=== PATIENT | male | born 1965 | race American Indian/Alaskan Native ===

== ENCOUNTER 2016-11-21 14:15 | Emergency (ER) | payer MEDICAID ==
[~2016-11-21] VITALS: Ht 182.9 cm; Wt 75.2 kg
[2016-11-21 16:22] VITALS: BP 115/74
== END 2016-11-21 16:38 | disposition home or self-care (01) ==
LOC: ED 16:00
DX: L03.116 Cellulitis of left lower limb (principal); B35.6 Tinea cruris; G89.29 Other chronic pain; M54.9 Dorsalgia, unspecified; K21.9 Gastro-esophageal reflux disease without esophagitis; I10 Essential (primary) hypertension; F17.200 Nicotine dependence, unspecified, uncomplicated

== ENCOUNTER 2017-08-12 21:48 | Emergency (ER) | payer MEDICAID ==
[~2017-08-12] VITALS: Ht 185.4 cm; Wt 77.4 kg
[~2017-08-12 21:48] MED LIST: OMEP-110 PO
[2017-08-12 21:54] VITALS: BP 140/95
[2017-08-12] MEDS ORDERED: FAMOTIDINE 20 MG TABLET PO ONE (23:00)
[2017-08-12] MEDS ORDERED: FAMOTIDINE 20 MG TABLET ONE (23:09)
== END 2017-08-12 23:26 | disposition home or self-care (01) ==
LOC: ED 22:48
DX: J02.9 Acute pharyngitis, unspecified (principal)
CPT/HCPCS: 99283; Q0177

== ENCOUNTER 2017-11-07 17:05 | Inpatient (IN) | payer MEDICAID ==
[~2017-11-07] VITALS: Ht 185.4 cm; Wt 74.4 kg
[2017-11-07] MEDS ORDERED: MAALOX/HYOSCYAMINE/LIDOCAINE 45 ML BTL PO ONE (18:00)
[2017-11-07] MEDS ORDERED: FAMOTIDINE 20 MG/2 ML IVP ONE (18:00)
[2017-11-07] MEDS ORDERED: SODIUM CHLORIDE 0.9% 1,000ML IVBOLUS ONE (18:00)
[2017-11-07 18:11] LABS: BASOPHILS # (AUTO) 0.03 x10^3/uL (0-0.1); BASOPHILS % (AUTO) 1 % (0-1); EOSINOPHILS # (AUTO) 0.02 x10^3/uL (0-0.4); EOSINOPHILS % (AUTO) 0 % (1-7); LYMPHOCYTES # (AUTO) 0.87 x10^3/uL (1-3.4); LYMPHOCYTES % (AUTO) 16 % (22-44); MD NO; MEAN CORPUSCULAR HEMOGLOBIN 23.1 pg (27.5-34.5); MEAN CORPUSCULAR HGB CONC 32.1 g/dL (33.2-36.2); MEAN CORPUSCULAR VOLUME 71.8 fL (81-97); MEAN PLATELET VOLUME 9.3 fL (7.4-10.4); MONOCYTES # (AUTO) 0.81 x10^3/uL (0.2-0.8); MONOCYTES % (AUTO) 15 % (2-9); NEUTROPHILS % (AUTO) 68 % (42-75); PLATELET COUNT 297 x10^3/uL (130-400); RED CELL DISTRIBUTION WIDTH 19.9 % (9.4-14.8)
[2017-11-07 18:12] LABS: INTERNATIONAL NORMALIZED RATIO 1.05 (0.93-1.1); PROTHROMBIN TIME 10.9 Seconds (9.6-11.5)
[2017-11-07] MEDS ORDERED: FAMOTIDINE 20 MG/2 ML ONE (18:22)
[2017-11-07] MEDS ORDERED: MAALOX/HYOSCYAMINE/LIDOCAINE 45 ML BTL ONE (18:22)
[2017-11-07 18:27] LABS: ALANINE AMINOTRANSFERASE 124 U/L (12-78); ALBUMIN 3.5 g/dL (3.4-5.0); ANION GAP 8 mmol/L (5-15); CALCIUM 8.8 mg/dL (8.5-10.1); CHLORIDE 104 mmol/L (98-107)
[2017-11-07 18:30] LABS: ALKALINE PHOSPHATASE 179 U/L (45-117); BILIRUBIN,TOTAL 0.3 mg/dL (0.2-1.0); CREATININE 0.81 mg/dL (0.7-1.3); TOTAL PROTEIN 8.3 g/dL (6.4-8.2)
[2017-11-07] MEDS ORDERED: SODIUM CHLORIDE FLUSH 10ML SYR IVF ONE (19:00)
[2017-11-07] MEDS ORDERED: LORazepam 2 MG/ML, 1ML IVPush ONE (20:00)
[2017-11-07] MEDS ORDERED: BISACODYL 10 MG SUPP PR PRN (20:00)
[2017-11-07 20:44] VITALS: BP 146/94
[2017-11-07] MEDS: SODIUM CHLORIDE 0.9% 1,000 ML IV SCH (20:50)
[2017-11-08 02:21] VITALS: BP 128/91
[2017-11-08] MEDS: SODIUM CHLORIDE 0.9% 1,000 ML IV SCH ×3 (04:48→20:50)
[2017-11-08 05:25] LABS: ANION GAP 5 mmol/L (5-15); CALCIUM 8.5 mg/dL (8.5-10.1); CHLORIDE 107 mmol/L (98-107); CREATININE 0.79 mg/dL (0.7-1.3)
[2017-11-08 05:41] LABS: BASOPHILS # (AUTO) 0.02 x10^3/uL (0-0.1); BASOPHILS % (AUTO) 1 % (0-1); EOSINOPHILS # (AUTO) 0.01 x10^3/uL (0-0.4); EOSINOPHILS % (AUTO) 0 % (1-7); LYMPHOCYTES # (AUTO) 1.01 x10^3/uL (1-3.4); LYMPHOCYTES % (AUTO) 28 % (22-44); MD NO; MEAN CORPUSCULAR HEMOGLOBIN 22.9 pg (27.5-34.5); MEAN CORPUSCULAR HGB CONC 32.5 g/dL (33.2-36.2); MEAN CORPUSCULAR VOLUME 70.6 fL (81-97); MEAN PLATELET VOLUME 9.3 fL (7.4-10.4); MONOCYTES # (AUTO) 0.68 x10^3/uL (0.2-0.8); MONOCYTES % (AUTO) 19 % (2-9); NEUTROPHILS # (AUTO) 1.95 x10^3/uL (1.8-6.8); NEUTROPHILS % (AUTO) 53 % (42-75); PLATELET COUNT 239 x10^3/uL (130-400); RED BLOOD COUNT 4.56 x10^6/uL (4.38-5.82)
[2017-11-08 08:31] VITALS: BP 128/86
[2017-11-08] MEDS ORDERED: PANTOPRAZOLE 40 MG IV IVPush SCH (09:00)
[2017-11-08] MEDS ORDERED: MIDAZOLAM 1 MG/ML, 5ML ONE (12:48)
[2017-11-08] MEDS ORDERED: FENTANYL PF 100 MCG/2ML ONE (12:48)
[2017-11-08 14:00] VITALS: BP 123/86
[2017-11-08] MEDS: OMEPRAZOLE 20 MG CAPSULE.DR PO SCH (17:34)
[2017-11-08 18:55] VITALS: BP 152/97
[2017-11-08] MEDS: BUDESONIDE PO SCH (20:51)
[2017-11-09 01:46] VITALS: BP 125/84
[2017-11-09 04:53] LABS: BASOPHILS # (AUTO) 0.02 x10^3/uL (0-0.1); BASOPHILS % (AUTO) 0 % (0-1); EOSINOPHILS # (AUTO) 0.03 x10^3/uL (0-0.4); EOSINOPHILS % (AUTO) 1 % (1-7); LYMPHOCYTES # (AUTO) 1.53 x10^3/uL (1-3.4); LYMPHOCYTES % (AUTO) 41 % (22-44); MD NO; MEAN CORPUSCULAR HEMOGLOBIN 22.8 pg (27.5-34.5); MEAN CORPUSCULAR HGB CONC 32.2 g/dL (33.2-36.2); MEAN CORPUSCULAR VOLUME 70.9 fL (81-97); MEAN PLATELET VOLUME 9.3 fL (7.4-10.4); MONOCYTES # (AUTO) 0.57 x10^3/uL (0.2-0.8); MONOCYTES % (AUTO) 15 % (2-9); NEUTROPHILS # (AUTO) 1.57 x10^3/uL (1.8-6.8); NEUTROPHILS % (AUTO) 42 % (42-75); PLATELET COUNT 227 x10^3/uL (130-400); RED CELL DISTRIBUTION WIDTH 20.2 % (9.4-14.8)
[2017-11-09] MEDS: SODIUM CHLORIDE 0.9% 1,000 ML IV SCH ×2 (04:54→12:54)
[2017-11-09] MEDS: BUDESONIDE PO SCH (09:00)
[2017-11-09 09:44] VITALS: BP 160/91
[2017-11-09] MEDS: OMEPRAZOLE 20 MG CAPSULE.DR PO SCH ×2 (09:47→16:05)
[2017-11-09 13:38] VITALS: BP 132/93
[2017-11-09] MEDS ORDERED: FERR-51 PO (15:16)
[2017-11-09] MEDS ORDERED: [UNRECOGNIZED DRUG - OTHER] PO ×3 (15:16→15:45)
[2017-11-09] MEDS ORDERED: OMEP-110 PO (15:16)
[2017-11-09] MEDS ORDERED: FERROUS SULFATE 325 MG TABLET PO SCH (17:00)
== END 2017-11-09 16:10 | disposition home or self-care (01) | DRG 370 ==
LOC: ED 18:21 → EDIP 19:29 → 4NOR 20:21
PROVIDERS: ADMIT Family Medicine; ATTEND Family Medicine
PROC: 0DB28ZX Excision of Middle Esophagus, Via Natural or Artificial Opening Endoscopic, Diagnostic (ICD-10-PCS; principal; 2017-11-07)
PROC: 0DB18ZX Excision of Upper Esophagus, Via Natural or Artificial Opening Endoscopic, Diagnostic (ICD-10-PCS; 2017-11-07)
DX: K22.6 Gastro-esophageal laceration-hemorrhage syndrome (principal); B19.20 Unspecified viral hepatitis C without hepatic coma; D50.9 Iron deficiency anemia, unspecified; F17.210 Nicotine dependence, cigarettes, uncomplicated; I10 Essential (primary) hypertension; K20.0 Eosinophilic esophagitis; K21.9 Gastro-esophageal reflux disease without esophagitis; Z80.0 Family history of malignant neoplasm of digestive organs
CPT/HCPCS: 36415; 80048; 80053; 80074; 82728; 82784; 83516; 83540; 83550; 83690; 85025; 85610; 85730; 86677; 87521; 88305; 96374; 99152; 99153; J2250; J3010; C9113; J7030; S0028

== ENCOUNTER 2018-03-08 12:42 | Inpatient (IN) | payer MEDICAID ==
[~2018-03-08] VITALS: Ht 182.9 cm; Wt 77.3 kg
[~2018-03-08 12:42] MED LIST changes: +FERR-51 PO; +[UNRECOGNIZED DRUG - OTHER] PO
[2018-03-08] MEDS ORDERED: FAMOTIDINE 20 MG/2 ML ONE (13:54)
[2018-03-08] MEDS ORDERED: MAALOX/HYOSCYAMINE/LIDOCAINE 45 ML BTL ONE (13:54)
[2018-03-08] MEDS ORDERED: ONDANSETRON ODT 4 MG ONE (13:54)
[2018-03-08] MEDS ORDERED: ONDANSETRON ODT 4 MG PO ONE (14:00)
[2018-03-08] MEDS ORDERED: FAMOTIDINE 20 MG/2 ML IVP ONE (14:00)
[2018-03-08] MEDS ORDERED: MAALOX/HYOSCYAMINE/LIDOCAINE 45 ML BTL PO ONE (14:00)
[2018-03-08] MEDS ORDERED: SODIUM CHLORIDE 0.9% 1,000ML IVBOLUS ONE (14:00)
[2018-03-08 14:26] LABS: CHLORIDE 103 mmol/L (98-107)
[2018-03-08 14:33] LABS: ALANINE AMINOTRANSFERASE 161 U/L (12-78); ALBUMIN 3.1 g/dL (3.4-5.0); ALKALINE PHOSPHATASE 272 U/L (45-117); ANION GAP 6 mmol/L (5-15); BILIRUBIN,TOTAL 0.7 mg/dL (0.2-1.0); CALCIUM 9.5 mg/dL (8.5-10.1); CREATININE 1.02 mg/dL (0.7-1.3); TOTAL PROTEIN 8.4 g/dL (6.4-8.2)
[2018-03-08 14:42] LABS: MEAN CORPUSCULAR VOLUME 68.8 fL (81-97); MEAN PLATELET VOLUME 11.2 fL (7.4-10.4); PLATELET COUNT 260 x10^3/uL (130-400); RED BLOOD COUNT 4.99 x10^6/uL (4.38-5.82)
[2018-03-08] MEDS ORDERED: SODIUM CHLORIDE FLUSH 10ML SYR IVF ONE (15:00)
[2018-03-08] MEDS ORDERED: PROMETHAZINE 25 MG/ML, 1ML IM ONE (15:00)
[2018-03-08] MEDS ORDERED: PROMETHAZINE 25 MG/ML, 1ML ONE (15:11)
[2018-03-08 15:42] LABS: MD YES
[2018-03-08 15:46] LABS: <PLATELET ESTIMATE> ADEQUATE; <RBC MORPHOLOGY> NORMAL; BAND#(MANUAL) 0.21 x10^3/uL; BANDS%(MANUAL) 3 % (0-7); EOS#(MANUAL) 0.14 x10^3/uL (0.0-0.4); EOS% (MANUAL) 2 % (1-7); LARGE PLATELETS 1+; LYMPH#(MANUAL) 1.56 x10^3/uL (1-3.4); LYMPHS% (MANUAL) 22 % (22-44); MONOS#(MANUAL) 0.28 x10^3/uL (0.3-2.7); MONOS% (MANUAL) 4 % (2-9); SEGS% (MANUAL) 69 % (42-75)
[2018-03-08] MEDS ORDERED: METRONIDAZOLE PMX 500MG/100ML 100 ML IV SCH (16:30)
[2018-03-08] MEDS ORDERED: CEFTRIAXONE 1,000 MG in SODIUM CHLORIDE 0.9% 50 ML IV SCH (16:30)
[2018-03-08] MEDS ORDERED: OXYcodone IR 5MG TABLET PO PRN (16:30)
[2018-03-08] MEDS ORDERED: ONDANSETRON 2MG/ML, 2ML IVPush PRN (16:30)
[2018-03-08] MEDS ORDERED: morphine SULFATE 10 MG/ML, 1ML IVPush PRN (16:30)
[2018-03-08] MEDS ORDERED: NITROGLYCERIN 0.4 MG BOTTLE (25 TABS) SL PRN (16:30)
[2018-03-08] MEDS ORDERED: ENALAPRILAT 1.25 MG/ML, 2ML IVPush PRN (16:30)
[2018-03-08 17:06] LABS: % IRON SATURATION 8 % (20-55); INTERNATIONAL NORMALIZED RATIO 1.09 (0.93-1.1); IRON LEVEL 28 mcg/dL (65-175); PROTHROMBIN TIME 11.2 Seconds (9.6-11.5); TOTAL IRON BINDING CAPACITY 363 mcg/dL (250-450)
[2018-03-08 17:09] LABS: TROPONIN I < 0.015 ng/mL (0.000-0.045)
[2018-03-08 17:45] LABS: BASOPHILS # (AUTO) 0.04 x10^3/uL (0-0.1); BASOPHILS % (AUTO) 1 % (0-1); EOSINOPHILS # (AUTO) 0.03 x10^3/uL (0-0.4); EOSINOPHILS % (AUTO) 1 % (1-7); LYMPHOCYTES # (AUTO) 1.45 x10^3/uL (1-3.4); LYMPHOCYTES % (AUTO) 21 % (22-44); MD SCAN; MEAN CORPUSCULAR HEMOGLOBIN 22.1 pg (27.5-34.5); MEAN CORPUSCULAR HGB CONC 31.9 g/dL (33.2-36.2); MEAN CORPUSCULAR VOLUME 69.1 fL (81-97); MEAN PLATELET VOLUME 11.2 fL (7.4-10.4); MONOCYTES # (AUTO) 0.89 x10^3/uL (0.2-0.8); MONOCYTES % (AUTO) 13 % (2-9); NEUTROPHILS # (AUTO) 4.41 x10^3/uL (1.8-6.8); NEUTROPHILS % (AUTO) 65 % (42-75); PLATELET COUNT 245 x10^3/uL (130-400); RED BLOOD COUNT 4.93 x10^6/uL (4.38-5.82); RED CELL DISTRIBUTION WIDTH 23.2 % (9.4-14.8)
[2018-03-08 18:32] VITALS: BP 131/96
[2018-03-08] MEDS: SODIUM CHLORIDE 0.9% 1,000 ML IV SCH (18:34)
[2018-03-08] MEDS ORDERED: FENTANYL PF 100 MCG/2ML ONE (19:29)
[2018-03-08] MEDS ORDERED: MIDAZOLAM 1 MG/ML, 2ML ONE (19:29)
[2018-03-08] MEDS ORDERED: [UNRECOGNIZED DRUG - OTHER] PO SCH (21:00)
[2018-03-08 22:16] LABS: MEAN CORPUSCULAR HEMOGLOBIN 22.2 pg (27.5-34.5); MEAN CORPUSCULAR HGB CONC 32.3 g/dL (33.2-36.2); MEAN CORPUSCULAR VOLUME 68.7 fL (81-97); MEAN PLATELET VOLUME 10.5 fL (7.4-10.4); PLATELET COUNT 231 x10^3/uL (130-400); RED BLOOD COUNT 4.94 x10^6/uL (4.38-5.82)
[2018-03-08] MEDS: PANTOPRAZOLE 40 MG IV IVPush SCH (22:24)
[2018-03-08] MEDS: ATORVASTATIN 40 MG TABLET PO SCH (22:24)
[2018-03-08] MEDS: NICOTINE 14MG/24 HR PATCH.TD24 TD SCH (22:44)
[2018-03-08 22:52] LABS: MD YES
[2018-03-08 22:55] LABS: EOS#(MANUAL) 0.06 x10^3/uL (0.0-0.4); EOS% (MANUAL) 1 % (1-7); LYMPH#(MANUAL) 1.79 x10^3/uL (1-3.4); LYMPHS% (MANUAL) 28 % (22-44); MONOS#(MANUAL) 0.64 x10^3/uL (0.3-2.7); MONOS% (MANUAL) 10 % (2-9); SEGS% (MANUAL) 61 % (42-75)
[2018-03-08 22:58] LABS: <PLATELET ESTIMATE> ADEQUATE; <PLT MORPHOLOGY> NORMAL PLT MORPH; HYPOCHROMIA 2+; MICROCYTOSIS 2+
[2018-03-08 23:01] VITALS: BP 116/78
[2018-03-09] MEDS: PIPERACILLIN/TAZO/PMX 4.5GM 100 ML IV SCH ×5 (00:45→23:48)
[2018-03-09 01:22] LABS: TROPONIN I < 0.015 ng/mL (0.000-0.045)
[2018-03-09 01:29] VITALS: BP 127/85
[2018-03-09] MEDS ORDERED: ASPIRIN 325 MG TABLET EC PO SCH (06:00)
[2018-03-09] MEDS ORDERED: ASPIRIN 81 MG TABLET EC PO SCH (06:00)
[2018-03-09 06:13] LABS: ALANINE AMINOTRANSFERASE 137 U/L (12-78); ALBUMIN 2.8 g/dL (3.4-5.0); ANION GAP 5 mmol/L (5-15); CALCIUM 8.4 mg/dL (8.5-10.1); CHLORIDE 107 mmol/L (98-107); CREATININE 0.86 mg/dL (0.7-1.3)
[2018-03-09 06:16] LABS: ALKALINE PHOSPHATASE 237 U/L (45-117); BILIRUBIN,TOTAL 0.5 mg/dL (0.2-1.0); TOTAL PROTEIN 7.7 g/dL (6.4-8.2)
[2018-03-09 08:00] VITALS: BP 122/74
[2018-03-09] MEDS: PANTOPRAZOLE 40 MG IV IVPush SCH ×2 (08:23→21:22)
[2018-03-09] MEDS: SODIUM CHLORIDE 0.9% 1,000 ML IV SCH (08:37)
[2018-03-09] MEDS ORDERED: PROPOFOL 10 MG/ML, 20ML ONE (09:21)
[2018-03-09 09:33] LABS: TROPONIN I < 0.015 ng/mL (0.000-0.045)
[2018-03-09] MEDS ORDERED: ONDANSETRON ODT 8 MG PO PRN (10:00)
[2018-03-09] MEDS ORDERED: EPHEDRINE 50 MG/ML, 1ML IVPush PRN (10:00)
[2018-03-09] MEDS ORDERED: PROMETHAZINE 25 MG/ML, 1ML IV PRN (10:00)
[2018-03-09] MEDS ORDERED: HYDROmorphone 1 MG/ML, 1ML IV PRN (10:00)
[2018-03-09] MEDS ORDERED: MORPHINE SULFATE 4 MG/ML, 1ML IVPush PRN (10:00)
[2018-03-09] MEDS ORDERED: MEPERIDINE/PF 25MG/0.5ML IVPush PRN (10:00)
[2018-03-09] MEDS ORDERED: ALBUTEROL SULFATE 2.5 MG/3 ML NPPB PRN (10:00)
[2018-03-09] MEDS ORDERED: PROMETHAZINE 12.5 MG SUPP PR PRN (10:00)
[2018-03-09] MEDS ORDERED: OXYcodone 5 MG/5 ML ORAL.SOL UDC PO PRN (10:00)
[2018-03-09] MEDS ORDERED: hydrALAzine 20 MG/ML, 1ML IV PRN (10:00)
[2018-03-09] MEDS ORDERED: FENTANYL PF 100 MCG/2ML IV PRN (10:00)
[2018-03-09] MEDS ORDERED: LABETALOL 5MG/ML, 20ML IV PRN (10:00)
[2018-03-09] MEDS ORDERED: MIDAZOLAM 1 MG/ML, 2ML IV PRN (10:00)
[2018-03-09] MEDS ORDERED: LORazepam 2 MG/ML, 1ML IVPush PRN (10:00)
[2018-03-09] MEDS ORDERED: ONDANSETRON 2MG/ML, 2ML IV PRN (10:00)
[2018-03-09] MEDS ORDERED: GADOBUTROL 15 MMOL/15 ML VIAL ONE (11:46)
[2018-03-09 12:47] VITALS: BP 145/107
[2018-03-09] MEDS ORDERED: IBUPROFEN 200 MG TABLET ONE (18:19)
[2018-03-09] MEDS ORDERED: IBUPROFEN 200 MG TABLET PO PRN (18:30)
[2018-03-09 19:52] VITALS: BP 129/87
[2018-03-09] MEDS: NICOTINE 14MG/24 HR PATCH.TD24 TD SCH (21:00)
[2018-03-09] MEDS: ATORVASTATIN 40 MG TABLET PO SCH (21:22)
[2018-03-10 02:00] VITALS: BP 141/92
[2018-03-10] MEDS: PIPERACILLIN/TAZO/PMX 4.5GM 100 ML IV SCH (06:00)
[2018-03-10] MEDS ORDERED: LINEZOLID PMX 600MG/300ML 300 ML IV SCH (08:00)
[2018-03-10] MEDS: PANTOPRAZOLE 40 MG IV IVPush SCH (08:38)
[2018-03-10 09:07] VITALS: BP 132/91
[2018-03-10] MEDS: AMPICILLIN/SULBACTAM 3 GM in SODIUM CHLORIDE 0.9% 100 ML IV SCH ×3 (11:39→23:27)
[2018-03-10 12:44] VITALS: BP 127/91
[2018-03-10 20:19] VITALS: BP 150/90
[2018-03-10] MEDS: DOXYCYCLINE 100MG TABLET PO SCH (20:56)
[2018-03-10] MEDS: PANTOPROZOLE 40MG TABLET PO SCH (20:56)
[2018-03-10] MEDS: ATORVASTATIN 40 MG TABLET PO SCH (20:56)
[2018-03-10] MEDS: NICOTINE 14MG/24 HR PATCH.TD24 TD SCH (20:56)
[2018-03-11 00:23] VITALS: BP 142/94
[2018-03-11] MEDS: AMPICILLIN/SULBACTAM 3 GM in SODIUM CHLORIDE 0.9% 100 ML IV SCH ×4 (05:14→23:12)
[2018-03-11 06:46] VITALS: BP 128/90
[2018-03-11 06:51] LABS: MEAN CORPUSCULAR HEMOGLOBIN 22.1 pg (27.5-34.5); MEAN CORPUSCULAR HGB CONC 32.3 g/dL (33.2-36.2); MEAN CORPUSCULAR VOLUME 68.5 fL (81-97); MEAN PLATELET VOLUME 10.7 fL (7.4-10.4); PLATELET COUNT 225 x10^3/uL (130-400); RED BLOOD COUNT 4.84 x10^6/uL (4.38-5.82); RED CELL DISTRIBUTION WIDTH 23.3 % (9.4-14.8)
[2018-03-11 07:02] LABS: ALBUMIN 2.7 g/dL (3.4-5.0); ANION GAP 6 mmol/L (5-15); CALCIUM 8.3 mg/dL (8.5-10.1); CHLORIDE 107 mmol/L (98-107)
[2018-03-11 07:05] LABS: ALANINE AMINOTRANSFERASE 135 U/L (12-78); ALKALINE PHOSPHATASE 285 U/L (45-117); BILIRUBIN,TOTAL 0.4 mg/dL (0.2-1.0); TOTAL PROTEIN 7.7 g/dL (6.4-8.2)
[2018-03-11 07:28] LABS: MD YES
[2018-03-11 07:29] LABS: <PLATELET ESTIMATE> ADEQUATE; BAND#(MANUAL) 0.04 x10^3/uL; BANDS%(MANUAL) 1 % (0-7); EOS#(MANUAL) 0.08 x10^3/uL (0.0-0.4); EOS% (MANUAL) 2 % (1-7); LYMPH#(MANUAL) 1.44 x10^3/uL (1-3.4); LYMPHS% (MANUAL) 38 % (22-44); MONOS#(MANUAL) 0.38 x10^3/uL (0.3-2.7); MONOS% (MANUAL) 10 % (2-9); SEG#(MANUAL) 1.86 x10^3/uL (1.8-6.8); SEGS% (MANUAL) 49 % (42-75)
[2018-03-11 07:30] LABS: LARGE PLATELETS 1+
[2018-03-11 07:31] LABS: HYPOCHROMIA 1+; MICROCYTOSIS 2+
[2018-03-11] MEDS: PANTOPROZOLE 40MG TABLET PO SCH ×2 (08:00→20:43)
[2018-03-11] MEDS: DOXYCYCLINE 100MG TABLET PO SCH ×2 (08:00→20:42)
[2018-03-11 12:23] VITALS: BP 156/96
[2018-03-11] MEDS ORDERED: MOVIPREP POWDER 1 PREP KIT PO ONE (17:00)
[2018-03-11 19:14] VITALS: BP 147/99
[2018-03-11] MEDS: NICOTINE 14MG/24 HR PATCH.TD24 TD SCH (20:42)
[2018-03-11] MEDS: ATORVASTATIN 40 MG TABLET PO SCH (20:42)
[2018-03-12 01:16] VITALS: BP 133/91
[2018-03-12] MEDS: AMPICILLIN/SULBACTAM 3 GM in SODIUM CHLORIDE 0.9% 100 ML IV SCH ×2 (05:06→12:47)
[2018-03-12 05:40] LABS: MEAN CORPUSCULAR HEMOGLOBIN 22.4 pg (27.5-34.5); MEAN CORPUSCULAR HGB CONC 32.5 g/dL (33.2-36.2); MEAN PLATELET VOLUME 10.7 fL (7.4-10.4); PLATELET COUNT 250 x10^3/uL (130-400); RED BLOOD COUNT 4.95 x10^6/uL (4.38-5.82); RED CELL DISTRIBUTION WIDTH 23.4 % (9.4-14.8)
[2018-03-12 05:52] LABS: CHLORIDE 107 mmol/L (98-107)
[2018-03-12 06:08] LABS: ALANINE AMINOTRANSFERASE 146 U/L (12-78); ALBUMIN 2.9 g/dL (3.4-5.0); ALKALINE PHOSPHATASE 269 U/L (45-117); ANION GAP 9 mmol/L (5-15); BILIRUBIN,TOTAL 0.6 mg/dL (0.2-1.0); CALCIUM 8.5 mg/dL (8.5-10.1); CREATININE 0.75 mg/dL (0.7-1.3)
[2018-03-12 06:17] LABS: BASOPHILS # (AUTO) 0.03 x10^3/uL (0-0.1); BASOPHILS % (AUTO) 1 % (0-1); EOSINOPHILS # (AUTO) 0.15 x10^3/uL (0-0.4); EOSINOPHILS % (AUTO) 3 % (1-7); LYMPHOCYTES % (AUTO) 29 % (22-44); MD SCAN; MONOCYTES % (AUTO) 12 % (2-9); NEUTROPHILS # (AUTO) 2.74 x10^3/uL (1.8-6.8); NEUTROPHILS % (AUTO) 56 % (42-75)
[2018-03-12 06:40] VITALS: BP 148/98
[2018-03-12] MEDS: PANTOPROZOLE 40MG TABLET PO SCH (08:14)
[2018-03-12] MEDS: DOXYCYCLINE 100MG TABLET PO SCH (08:14)
[2018-03-12] MEDS ORDERED: PROPOFOL 10 MG/ML, 20ML ONE (10:44)
[2018-03-12] MEDS ORDERED: FENTANYL PF 100 MCG/2ML IV PRN (11:30)
[2018-03-12] MEDS ORDERED: EPHEDRINE 50 MG/ML, 1ML IVPush PRN (11:30)
[2018-03-12] MEDS ORDERED: MIDAZOLAM 1 MG/ML, 2ML IV PRN (11:30)
[2018-03-12] MEDS ORDERED: ALBUTEROL SULFATE 2.5 MG/3 ML NPPB PRN (11:30)
[2018-03-12] MEDS ORDERED: MORPHINE SULFATE 4 MG/ML, 1ML IVPush PRN (11:30)
[2018-03-12] MEDS ORDERED: LABETALOL 5MG/ML, 20ML IV PRN (11:30)
[2018-03-12] MEDS ORDERED: HYDROmorphone 1 MG/ML, 1ML IV PRN (11:30)
[2018-03-12] MEDS ORDERED: MEPERIDINE/PF 25MG/0.5ML IVPush PRN (11:30)
[2018-03-12] MEDS ORDERED: hydrALAzine 20 MG/ML, 1ML IV PRN (11:30)
[2018-03-12] MEDS ORDERED: OXYcodone 5 MG/5 ML ORAL.SOL UDC PO PRN (11:30)
[2018-03-12] MEDS ORDERED: ONDANSETRON ODT 8 MG PO PRN (11:30)
[2018-03-12] MEDS ORDERED: PROMETHAZINE 12.5 MG SUPP PR PRN (11:30)
[2018-03-12] MEDS ORDERED: LORazepam 2 MG/ML, 1ML IVPush PRN (11:30)
[2018-03-12] MEDS ORDERED: PROMETHAZINE 25 MG/ML, 1ML IV PRN (11:30)
[2018-03-12] MEDS ORDERED: ONDANSETRON 2MG/ML, 2ML IV PRN (11:30)
[2018-03-12 12:40] VITALS: BP 140/95
[2018-03-12] MEDS ORDERED: OMNIPAQUE 350 MG/ML, 100ML BOTTLE ONE (14:39)
[2018-03-12] MEDS ORDERED: PANT40TA5 PO (16:28)
[2018-03-12] MEDS ORDERED: AMOX1TAB64 PO (16:28)
== END 2018-03-12 17:10 | disposition home or self-care (01) | DRG 445 ==
LOC: ED 15:04 → EDIP 15:09 → 4WST 18:08
PROVIDERS: ADMIT Internal Medicine; ATTEND Internal Medicine
PROC: 0DB28ZX Excision of Middle Esophagus, Via Natural or Artificial Opening Endoscopic, Diagnostic (ICD-10-PCS; principal; 2018-03-09 09:30)
PROC: 0DBK8ZZ Excision of Ascending Colon, Via Natural or Artificial Opening Endoscopic (ICD-10-PCS; 2018-03-12)
PROC: 0DBL8ZZ Excision of Transverse Colon, Via Natural or Artificial Opening Endoscopic (ICD-10-PCS; 2018-03-12)
DX: K80.00 Calculus of gallbladder with acute cholecystitis without obstruction (principal); D62 Acute posthemorrhagic anemia; L03.115 Cellulitis of right lower limb; K21.0 Gastro-esophageal reflux disease with esophagitis; K63.5 Polyp of colon; T63.301A Toxic effect of unspecified spider venom, accidental (unintentional), initial encounter; R16.0 Hepatomegaly, not elsewhere classified; B18.2 Chronic viral hepatitis C; F17.200 Nicotine dependence, unspecified, uncomplicated; E86.0 Dehydration; I10 Essential (primary) hypertension; G89.29 Other chronic pain; M54.9 Dorsalgia, unspecified; K57.30 Diverticulosis of large intestine without perforation or abscess without bleeding; Z66 Do not resuscitate; Z71.6 Tobacco abuse counseling; Z80.0 Family history of malignant neoplasm of digestive organs; Z80.3 Family history of malignant neoplasm of breast; Z80.8 Family history of malignant neoplasm of other organs or systems; Y92.89 Other specified places as the place of occurrence of the external cause
CPT/HCPCS: 36415; 99285; S0028; 71046; 74178; 74183; 76700; 80053; 82105; 82728; 83540; 83550; 83690; 83735; 84100; 84484; 85025; 85610; 85730; 87040; 87070; 87147; 87205; 87522; 87902; 88305; 93005; 96361; 96372; 96374; A9585; G0378; J0295; J0696; J2250; J2543; J2550; J2704; J3010; Q0162; Q9967; C9113; J7030

== ENCOUNTER 2018-03-21 10:01 | Observation (INO) | payer MEDICAID ==
[~2018-03-21] VITALS: Ht 182.9 cm; Wt 76.0 kg
[~2018-03-21 10:01] MED LIST changes: +AMOX1TAB64 PO; +PANT40TA5 PO
[2018-03-21 11:49] LABS: MICROSCOPIC INDICATED
[2018-03-21] MEDS ORDERED: ONDANSETRON ODT 4 MG PO ONE ×2 (12:00→14:00)
[2018-03-21] MEDS ORDERED: MORPHINE SULFATE 4 MG/ML, 1ML IVPush PRN (12:00)
[2018-03-21] MEDS ORDERED: SODIUM CHLORIDE FLUSH 10ML SYR IVF ONE ×2 (12:00→14:00)
[2018-03-21] MEDS ORDERED: ONDANSETRON ODT 4 MG ONE ×2 (12:06→13:38)
[2018-03-21] MEDS ORDERED: MORPHINE SULFATE 4 MG/ML, 1ML ONE (12:06)
[2018-03-21 12:17] LABS: MEAN CORPUSCULAR HEMOGLOBIN 21.9 pg (27.5-34.5); MEAN CORPUSCULAR HGB CONC 32.6 g/dL (33.2-36.2); MEAN CORPUSCULAR VOLUME 67.1 fL (81-97); MEAN PLATELET VOLUME 10.6 fL (7.4-10.4); PLATELET COUNT 269 x10^3/uL (130-400); RED BLOOD COUNT 4.69 x10^6/uL (4.38-5.82); RED CELL DISTRIBUTION WIDTH 24.2 % (9.4-14.8)
[2018-03-21 12:23] LABS: ALANINE AMINOTRANSFERASE 152 U/L (12-78); ANION GAP 11 mmol/L (5-15); CALCIUM 8.7 mg/dL (8.5-10.1); CHLORIDE 105 mmol/L (98-107); CREATININE 0.76 mg/dL (0.7-1.3)
[2018-03-21 12:25] LABS: ALKALINE PHOSPHATASE 405 U/L (45-117); BILIRUBIN,TOTAL 0.7 mg/dL (0.2-1.0); TOTAL PROTEIN 8.1 g/dL (6.4-8.2)
[2018-03-21 12:32] LABS: BASOPHILS # (AUTO) 0.03 x10^3/uL (0-0.1); BASOPHILS % (AUTO) 1 % (0-1); EOSINOPHILS # (AUTO) 0.06 x10^3/uL (0-0.4); EOSINOPHILS % (AUTO) 1 % (1-7); LYMPHOCYTES # (AUTO) 1.09 x10^3/uL (1-3.4); LYMPHOCYTES % (AUTO) 22 % (22-44); MD MORPH REVIEW ONLY; MONOCYTES # (AUTO) 0.43 x10^3/uL (0.2-0.8); MONOCYTES % (AUTO) 9 % (2-9); NEUTROPHILS # (AUTO) 3.35 x10^3/uL (1.8-6.8); NEUTROPHILS % (AUTO) 68 % (42-75)
[2018-03-21 12:33] LABS: <PLATELET ESTIMATE> ADEQUATE; ANISOCYTOSIS 1+; HYPOCHROMIA 1+; LARGE PLATELETS 1+; MICROCYTOSIS 2+; POLYCHROMASIA 1+
[2018-03-21] MEDS ORDERED: PROMETHAZINE 25 MG/ML, 1ML IM ONE (14:00)
[2018-03-21] MEDS ORDERED: SODIUM CHLORIDE 0.9% 1,000ML IVBOLUS ONE (14:00)
[2018-03-21] MEDS ORDERED: ONDANSETRON 2MG/ML, 2ML IVPush PRN (15:30)
[2018-03-21] MEDS ORDERED: BISACODYL 10 MG SUPP PR PRN (15:30)
[2018-03-21] MEDS ORDERED: ONDANSETRON ODT 4 MG PO PRN (15:30)
[2018-03-21] MEDS ORDERED: LABETALOL 5MG/ML, 20ML IVPush PRN (15:30)
[2018-03-21 15:31] LABS: INTERNATIONAL NORMALIZED RATIO 1.06 (0.93-1.1)
[2018-03-21 16:33] LABS: FREE T4 (FREE THYROXINE) 0.98 ng/dL (0.76-1.46); THYROID STIMULATING HORMONE 0.733 mIU/L (0.358-3.740)
[2018-03-21] MEDS: SODIUM CHLORIDE 0.9% 1,000 ML IV SCH (17:04)
[2018-03-21 20:30] VITALS: BP 146/98
[2018-03-21] MEDS: FAMOTIDINE 20 MG/2 ML IVPush SCH (21:26)
[2018-03-22] MEDS: SODIUM CHLORIDE 0.9% 1,000 ML IV SCH (02:09)
[2018-03-22 02:35] VITALS: BP 147/97
[2018-03-22 04:57] LABS: ALANINE AMINOTRANSFERASE 155 U/L (12-78); ALBUMIN 2.8 g/dL (3.4-5.0); ANION GAP 5 mmol/L (5-15); CALCIUM 8.5 mg/dL (8.5-10.1); CHLORIDE 108 mmol/L (98-107); CREATININE 0.77 mg/dL (0.7-1.3)
[2018-03-22 04:59] LABS: ALKALINE PHOSPHATASE 367 U/L (45-117); BILIRUBIN,TOTAL 0.8 mg/dL (0.2-1.0)
[2018-03-22 05:26] LABS: BASOPHILS # (AUTO) 0.03 x10^3/uL (0-0.1); BASOPHILS % (AUTO) 1 % (0-1); EOSINOPHILS # (AUTO) 0.12 x10^3/uL (0-0.4); EOSINOPHILS % (AUTO) 2 % (1-7); LYMPHOCYTES % (AUTO) 30 % (22-44); MD SCAN; MEAN CORPUSCULAR HEMOGLOBIN 21.9 pg (27.5-34.5); MEAN CORPUSCULAR HGB CONC 32.2 g/dL (33.2-36.2); MEAN CORPUSCULAR VOLUME 68.1 fL (81-97); MEAN PLATELET VOLUME 10.8 fL (7.4-10.4); MONOCYTES % (AUTO) 11 % (2-9); NEUTROPHILS # (AUTO) 3.06 x10^3/uL (1.8-6.8); NEUTROPHILS % (AUTO) 56 % (42-75); PLATELET COUNT 285 x10^3/uL (130-400); RED BLOOD COUNT 4.76 x10^6/uL (4.38-5.82); RED CELL DISTRIBUTION WIDTH 23.6 % (9.4-14.8)
[2018-03-22 07:14] VITALS: BP 133/89
[2018-03-22] MEDS ORDERED: FLUMAZENIL 0.1 MG/1 ML, 5ML ONE (08:43)
[2018-03-22] MEDS ORDERED: FENTANYL PF 100 MCG/2ML ONE (08:43)
[2018-03-22] MEDS ORDERED: MIDAZOLAM 1 MG/ML, 5ML ONE (08:43)
[2018-03-22] MEDS ORDERED: NALOXONE 1 MG/ML, 2ML ONE (08:43)
[2018-03-22] MEDS ORDERED: LIDOCAINE-MPF 2%, 2ML ONE (08:47)
[2018-03-22] MEDS: SENNA/DOCUSATE TABLET PO SCH (09:00)
[2018-03-22] MEDS: FAMOTIDINE 20 MG/2 ML IVPush SCH ×2 (09:44→21:13)
[2018-03-22] MEDS: APIXABAN 5 MG TABLET PO SCH ×2 (11:14→21:13)
[2018-03-22] MEDS: IRON SUCROSE COMPLEX 100MG/5ML IV SCH (13:26)
[2018-03-22 14:54] VITALS: BP 130/81
[2018-03-22] MEDS ORDERED: SODIUM CHLORIDE 0.9% 1,000 ML IV SCH (15:17)
[2018-03-22 18:56] VITALS: BP 117/81
[2018-03-22] MEDS ORDERED: NICOTINE 14MG/24 HR PATCH.TD24 TD SCH (22:30)
[2018-03-23 00:24] VITALS: BP 131/90
[2018-03-23 07:34] VITALS: BP 144/99
[2018-03-23] MEDS: IRON SUCROSE COMPLEX 100MG/5ML IV SCH (07:43)
[2018-03-23] MEDS: APIXABAN 5 MG TABLET PO SCH (07:43)
[2018-03-23] MEDS: FAMOTIDINE 20 MG/2 ML IVPush SCH (07:43)
[2018-03-23 08:03] LABS: ALANINE AMINOTRANSFERASE 188 U/L (12-78); ALBUMIN 3.1 g/dL (3.4-5.0); ANION GAP 8 mmol/L (5-15); CALCIUM 8.9 mg/dL (8.5-10.1); CHLORIDE 102 mmol/L (98-107); CREATININE 0.77 mg/dL (0.7-1.3)
[2018-03-23] MEDS: SENNA/DOCUSATE TABLET PO SCH (08:03)
[2018-03-23 08:05] LABS: ALKALINE PHOSPHATASE 453 U/L (45-117); BILIRUBIN,TOTAL 0.7 mg/dL (0.2-1.0); TOTAL PROTEIN 8.7 g/dL (6.4-8.2)
[2018-03-23 08:19] LABS: MEAN CORPUSCULAR HEMOGLOBIN 21.9 pg (27.5-34.5); MEAN CORPUSCULAR HGB CONC 32.5 g/dL (33.2-36.2); MEAN CORPUSCULAR VOLUME 67.4 fL (81-97); MEAN PLATELET VOLUME 10.2 fL (7.4-10.4); PLATELET COUNT 314 x10^3/uL (130-400); RED BLOOD COUNT 5.21 x10^6/uL (4.38-5.82); RED CELL DISTRIBUTION WIDTH 23.1 % (9.4-14.8)
[2018-03-23 08:21] LABS: BASOPHILS # (AUTO) 0.03 x10^3/uL (0-0.1); BASOPHILS % (AUTO) 1 % (0-1); EOSINOPHILS # (AUTO) 0.09 x10^3/uL (0-0.4); EOSINOPHILS % (AUTO) 2 % (1-7); LYMPHOCYTES # (AUTO) 1.29 x10^3/uL (1-3.4); LYMPHOCYTES % (AUTO) 23 % (22-44); MD MORPH REVIEW ONLY; MONOCYTES # (AUTO) 0.57 x10^3/uL (0.2-0.8); MONOCYTES % (AUTO) 10 % (2-9); NEUTROPHILS # (AUTO) 3.76 x10^3/uL (1.8-6.8); NEUTROPHILS % (AUTO) 66 % (42-75)
[2018-03-23 08:27] LABS: ANISOCYTOSIS 1+; MICROCYTOSIS 2+; POLYCHROMASIA 1+; TARGET CELLS 1+
[2018-03-23 08:28] LABS: <PLATELET ESTIMATE> ADEQUATE; HYPOCHROMIA 1+; LARGE PLATELETS 1+
[2018-03-23] MEDS ORDERED: TRAM50TA2 PO (13:13)
[2018-03-23] MEDS ORDERED: NICO-486 TD (13:13)
[2018-03-23] MEDS ORDERED: APIX5TAB PO (13:13)
[2018-03-23 13:46] VITALS: BP 155/96
[2018-03-29] MEDS ORDERED: APIXABAN 5 MG TABLET PO SCH (09:00)
== END 2018-03-23 16:09 | disposition home or self-care (01) ==
LOC: ED 12:48 → INTOOBSV 13:44 → EDIP 13:44 → 3NW 14:53
PROVIDERS: ADMIT Internal Medicine; ATTEND Internal Medicine
DX: R10.11 Right upper quadrant pain (principal); R11.2 Nausea with vomiting, unspecified; E86.0 Dehydration; R16.0 Hepatomegaly, not elsewhere classified; R58 Hemorrhage, not elsewhere classified; K22.6 Gastro-esophageal laceration-hemorrhage syndrome; R74.0 Nonspecific elevation of levels of transaminase and lactic acid dehydrogenase [LDH]; R79.89 Other specified abnormal findings of blood chemistry
CPT/HCPCS: 36415; 76700; 80053; 81001; 82107; 83690; 83735; 83951; 84100; 84439; 84443; 85025; 85610; 96361; 96372; 96374; 96375; 96376; 99285; G0378; J1756; J2550; J7030; Q0162; S0028; J2250; J3010; J3490; J2310

== ENCOUNTER 2018-03-28 04:49 | Emergency (ER) | payer MEDICAID ==
[~2018-03-28] VITALS: Ht 182.9 cm; Wt 85.0 kg
[~2018-03-28 04:49] MED LIST changes: +APIX5TAB PO; +NICO-486 TD; +TRAM50TA2 PO
[2018-03-28] MEDS ORDERED: MAALOX/HYOSCYAMINE/LIDOCAINE 45 ML BTL PO ONE (05:30)
[2018-03-28] MEDS ORDERED: PROMETHAZINE 25 MG/ML, 1ML IM ONE (05:30)
[2018-03-28] MEDS ORDERED: PROMETHAZINE 25MG TABLET ONE (05:31)
[2018-03-28] MEDS ORDERED: MAALOX/HYOSCYAMINE/LIDOCAINE 45 ML BTL ONE (05:31)
[2018-03-28] MEDS ORDERED: PROMETHAZINE 25MG TABLET PO PRN (06:00)
[2018-03-28 06:01] LABS: INTERNATIONAL NORMALIZED RATIO 1.08 (0.93-1.1); PROTHROMBIN TIME 11.2 Seconds (9.6-11.5)
[2018-03-28 06:04] LABS: ALANINE AMINOTRANSFERASE 265 U/L (12-78); ALBUMIN 3.2 g/dL (3.4-5.0); ANION GAP 9 mmol/L (5-15); CALCIUM 8.3 mg/dL (8.5-10.1); CHLORIDE 104 mmol/L (98-107)
[2018-03-28 06:07] LABS: ALKALINE PHOSPHATASE 386 U/L (45-117); BILIRUBIN,TOTAL 1.3 mg/dL (0.2-1.0); CREATININE 0.85 mg/dL (0.7-1.3); TOTAL PROTEIN 8.1 g/dL (6.4-8.2)
[2018-03-28 06:08] LABS: MEAN CORPUSCULAR HEMOGLOBIN 22.9 pg (27.5-34.5); MEAN CORPUSCULAR HGB CONC 33.2 g/dL (33.2-36.2); MEAN PLATELET VOLUME 10.1 fL (7.4-10.4); PLATELET COUNT 346 x10^3/uL (130-400); RED BLOOD COUNT 4.63 x10^6/uL (4.38-5.82); RED CELL DISTRIBUTION WIDTH 24.9 % (9.4-14.8)
[2018-03-28] MEDS ORDERED: METHOCARBAMOL 500 MG TABLET PO ONE (07:00)
[2018-03-28 07:03] LABS: BASOPHILS # (AUTO) 0.05 x10^3/uL (0-0.1); BASOPHILS % (AUTO) 1 % (0-1); EOSINOPHILS # (AUTO) 0.06 x10^3/uL (0-0.4); EOSINOPHILS % (AUTO) 1 % (1-7); LYMPHOCYTES # (AUTO) 1.44 x10^3/uL (1-3.4); LYMPHOCYTES % (AUTO) 17 % (22-44); MD SCAN; MONOCYTES # (AUTO) 0.63 x10^3/uL (0.2-0.8); MONOCYTES % (AUTO) 7 % (2-9); NEUTROPHILS # (AUTO) 6.33 x10^3/uL (1.8-6.8); NEUTROPHILS % (AUTO) 75 % (42-75)
[2018-03-28 08:20] VITALS: BP 127/84
== END 2018-03-28 08:37 | disposition home or self-care (01) ==
LOC: ED 05:13
DX: S39.012A Strain of muscle, fascia and tendon of lower back, initial encounter (principal); R74.0 Nonspecific elevation of levels of transaminase and lactic acid dehydrogenase [LDH]; Z86.718 Personal history of other venous thrombosis and embolism; G89.29 Other chronic pain; I10 Essential (primary) hypertension; K21.9 Gastro-esophageal reflux disease without esophagitis; F17.200 Nicotine dependence, unspecified, uncomplicated; X58.XXXA Exposure to other specified factors, initial encounter; Y93.89 Activity, other specified; Y92.89 Other specified places as the place of occurrence of the external cause; Y99.8 Other external cause status
CPT/HCPCS: 36415; 80053; 80307; 83690; 85025; 85610; 85730; 99284; Q0169

== ENCOUNTER 2018-04-26 10:25 | Inpatient (IN) | payer MEDICAID ==
[~2018-04-26] VITALS: Ht 182.9 cm; Wt 70.3 kg
[2018-04-26] MEDS ORDERED: SODIUM CHLORIDE FLUSH 10ML SYR IVF ONE (11:00)
[2018-04-26] MEDS ORDERED: ONDANSETRON 2MG/ML, 2ML IVPush ONE (11:00)
[2018-04-26] MEDS ORDERED: SODIUM CHLORIDE 0.9% 1,000ML IVBOLUS ONE (11:00)
[2018-04-26] MEDS ORDERED: MORPHINE SULFATE 4 MG/ML, 1ML IVPush PRN (11:00)
[2018-04-26] MEDS ORDERED: PANTOPRAZOLE 40 MG IV IVPush ONE (11:00)
[2018-04-26] MEDS ORDERED: ONDANSETRON 2MG/ML, 2ML ONE (11:04)
[2018-04-26] MEDS ORDERED: MORPHINE SULFATE 4 MG/ML, 1ML ONE (11:04)
[2018-04-26] MEDS ORDERED: PANTOPRAZOLE 40 MG IV ONE (11:04)
[2018-04-26 11:21] LABS: INTERNATIONAL NORMALIZED RATIO 1.15 (0.93-1.1); PROTHROMBIN TIME 11.8 Seconds (9.6-11.5)
[2018-04-26 11:24] LABS: ALANINE AMINOTRANSFERASE 149 U/L (12-78); ANION GAP 7 mmol/L (5-15); CALCIUM 9.2 mg/dL (8.5-10.1); CHLORIDE 98 mmol/L (98-107)
[2018-04-26 11:25] LABS: MEAN CORPUSCULAR HEMOGLOBIN 24.4 pg (27.5-34.5); MEAN PLATELET VOLUME 9.4 fL (7.4-10.4); PLATELET COUNT 371 x10^3/uL (130-400); RED BLOOD COUNT 5.26 x10^6/uL (4.38-5.82); RED CELL DISTRIBUTION WIDTH 24.5 % (9.4-14.8)
[2018-04-26 11:26] LABS: ALKALINE PHOSPHATASE 894 U/L (45-117); BILIRUBIN,TOTAL 0.9 mg/dL (0.2-1.0); TOTAL PROTEIN 8.8 g/dL (6.4-8.2)
[2018-04-26 12:07] LABS: BASOPHILS # (AUTO) 0.03 x10^3/uL (0-0.1); BASOPHILS % (AUTO) 0 % (0-1); EOSINOPHILS # (AUTO) 0.03 x10^3/uL (0-0.4); EOSINOPHILS % (AUTO) 1 % (1-7); LYMPHOCYTES # (AUTO) 1.31 x10^3/uL (1-3.4); LYMPHOCYTES % (AUTO) 21 % (22-44); MD MORPH REVIEW ONLY; MONOCYTES # (AUTO) 0.61 x10^3/uL (0.2-0.8); MONOCYTES % (AUTO) 10 % (2-9); NEUTROPHILS % (AUTO) 69 % (42-75)
[2018-04-26 12:59] LABS: ANISOCYTOSIS 1+; MICROCYTOSIS 1+; TARGET CELLS 1+
[2018-04-26 13:00] LABS: <PLATELET ESTIMATE> ADEQUATE; <PLT MORPHOLOGY> NORMAL PLT MORPH; HYPOCHROMIA 1+
[2018-04-26 13:54] VITALS: BP 150/105
[2018-04-26] MEDS: SODIUM CHLORIDE 0.9% 1,000 ML IV SCH ×2 (15:28→22:47)
[2018-04-26] MEDS ORDERED: NICOTINE 21 MG/24 HR PATCH.TD24 TD SCH (17:30)
[2018-04-26] MEDS ORDERED: FERROUS SULFATE 325 MG TABLET PO SCH (17:30)
[2018-04-26] MEDS: MORPHINE SULFATE 4 MG/ML, 1ML IVPush PRN ×2 (17:53→21:16)
[2018-04-26] MEDS: NICOTINE 14MG/24 HR PATCH.TD24 TD SCH (17:53)
[2018-04-26 19:22] VITALS: BP 157/105
[2018-04-26] MEDS: hydrALAzine 20 MG/ML, 1ML IVPush PRN (19:25)
[2018-04-26] MEDS ORDERED: PANTOPRAZOLE 40 MG IV IVPush SCH (21:00)
[2018-04-26] MEDS ORDERED: TEMPLATE NON-FORMULARY MED. (Pantoprazole Sodium** 40 MG) PO SCH (21:00)
[2018-04-26 21:06] VITALS: BP 140/98
[2018-04-27] MEDS: MORPHINE SULFATE 4 MG/ML, 1ML IVPush PRN ×4 (00:32→14:26)
[2018-04-27 01:00] VITALS: BP 140/99
[2018-04-27 05:07] LABS: ALANINE AMINOTRANSFERASE 122 U/L (12-78); ALBUMIN 2.7 g/dL (3.4-5.0); ANION GAP 7 mmol/L (5-15); CALCIUM 8.6 mg/dL (8.5-10.1); CHLORIDE 110 mmol/L (98-107); CREATININE 0.63 mg/dL (0.7-1.3); MEAN CORPUSCULAR HEMOGLOBIN 24.2 pg (27.5-34.5); MEAN CORPUSCULAR HGB CONC 32.6 g/dL (33.2-36.2); MEAN CORPUSCULAR VOLUME 74.2 fL (81-97); MEAN PLATELET VOLUME 9.5 fL (7.4-10.4); PLATELET COUNT 294 x10^3/uL (130-400); RED BLOOD COUNT 4.85 x10^6/uL (4.38-5.82); RED CELL DISTRIBUTION WIDTH 24.3 % (9.4-14.8)
[2018-04-27 05:10] LABS: ALKALINE PHOSPHATASE 734 U/L (45-117)
[2018-04-27 05:58] LABS: BASOPHILS # (AUTO) 0.02 x10^3/uL (0-0.1); BASOPHILS % (AUTO) 0 % (0-1); EOSINOPHILS # (AUTO) 0.03 x10^3/uL (0-0.4); EOSINOPHILS % (AUTO) 1 % (1-7); LYMPHOCYTES # (AUTO) 1.27 x10^3/uL (1-3.4); LYMPHOCYTES % (AUTO) 24 % (22-44); MD SCAN; MONOCYTES # (AUTO) 0.49 x10^3/uL (0.2-0.8); MONOCYTES % (AUTO) 9 % (2-9); NEUTROPHILS # (AUTO) 3.46 x10^3/uL (1.8-6.8); NEUTROPHILS % (AUTO) 66 % (42-75)
[2018-04-27] MEDS: SODIUM CHLORIDE 0.9% 1,000 ML IV SCH ×3 (06:06→21:09)
[2018-04-27 08:19] VITALS: BP 160/113
[2018-04-27] MEDS: hydrALAzine 20 MG/ML, 1ML IVPush PRN ×2 (08:39→16:16)
[2018-04-27 09:33] VITALS: BP 140/100
[2018-04-27 13:27] VITALS: BP 144/108
[2018-04-27 15:55] VITALS: BP 144/108
[2018-04-27] MEDS ORDERED: FENTANYL PF 250 MCG/5ML ONE (16:02)
[2018-04-27] MEDS ORDERED: BUPIVACAINE/PF-EPI 0.5% 1:200K ONE (16:10)
[2018-04-27] MEDS ORDERED: ONDANSETRON 2MG/ML, 2ML IV PRN (16:30)
[2018-04-27] MEDS ORDERED: OXYcodone 5 MG/5 ML ORAL.SOL UDC PO PRN (16:30)
[2018-04-27] MEDS ORDERED: FENTANYL PF 100 MCG/2ML IV PRN (16:30)
[2018-04-27] MEDS ORDERED: PROMETHAZINE 25 MG/ML, 1ML IV PRN (16:30)
[2018-04-27] MEDS ORDERED: CEFOTETAN PMX 2GM/50ML 50 ML ONE (16:45)
[2018-04-27] MEDS ORDERED: DEXAMETHASONE 4 MG/ML, 1ML ONE (16:49)
[2018-04-27] MEDS ORDERED: PROPOFOL 10 MG/ML, 20ML ONE (16:56)
[2018-04-27] MEDS ORDERED: BUPIVACAINE/PF-EPI 0.5% 1:200K INFIL ONE (17:05)
[2018-04-27] MEDS ORDERED: ONDANSETRON 2MG/ML, 2ML ONE ×2 (17:20→18:28)
[2018-04-27] MEDS ORDERED: THROMBIN 20,000 UNIT VIAL TP ONE (17:22)
[2018-04-27] MEDS ORDERED: ROCURONIUM 10MG/ML,5ML ONE (17:28)
[2018-04-27] MEDS ORDERED: LABETALOL 5MG/ML, 20ML ONE (17:30)
[2018-04-27] MEDS ORDERED: OXYcodone 5 MG/5 ML ORAL.SOL UDC ONE (17:49)
[2018-04-27] MEDS: LABETALOL 5MG/ML, 20ML IV PRN ×2 (17:50→18:18)
[2018-04-27] MEDS ORDERED: FENTANYL PF 100 MCG/2ML ONE (17:59)
[2018-04-27] MEDS ORDERED: hydrALAzine 20 MG/ML, 1ML ONE (18:03)
[2018-04-27] MEDS: hydrALAzine 20 MG/ML, 1ML IV PRN ×2 (18:05→18:25)
[2018-04-27] MEDS: HYDROmorphone 1 MG/ML, 1ML IV PRN ×2 (18:20→18:42)
[2018-04-27] MEDS ORDERED: HYDROmorphone 2 MG/ML, 1ML ONE (18:22)
[2018-04-27 19:36] VITALS: BP 139/87
[2018-04-27] MEDS: NICOTINE 14MG/24 HR PATCH.TD24 TD SCH (19:48)
[2018-04-27] MEDS: D5%-0.45NACL+KCL 20MEQ 1,000 ML IV SCH (21:16)
[2018-04-27] MEDS: OXYcodone IR 5MG TABLET PO PRN (22:11)
[2018-04-28 00:09] VITALS: BP 125/78
[2018-04-28] MEDS: MORPHINE SULFATE 4 MG/ML, 1ML IVPush PRN ×7 (01:06→21:53)
[2018-04-28 04:19] VITALS: BP 128/83
[2018-04-28] MEDS: SODIUM CHLORIDE 0.9% 1,000 ML IV SCH (05:35)
[2018-04-28 08:28] VITALS: BP 135/91
[2018-04-28] MEDS: PIPERACILLIN/TAZO/PMX 4.5GM 100 ML IV SCH ×2 (11:05→19:30)
[2018-04-28 14:46] VITALS: BP 136/87
[2018-04-28] MEDS: D5%-0.45NACL+KCL 20MEQ 1,000 ML IV SCH (15:22)
[2018-04-28] MEDS: OXYcodone IR 5MG TABLET PO PRN ×2 (19:23→23:50)
[2018-04-28] MEDS: NICOTINE 14MG/24 HR PATCH.TD24 TD SCH (19:30)
[2018-04-28 20:09] VITALS: BP 139/90
[2018-04-28] MEDS: LORazepam 2 MG/ML, 1ML IVPush PRN (23:57)
[2018-04-28] MEDS: ONDANSETRON 2MG/ML, 2ML IVPush PRN (23:57)
[2018-04-29 01:21] VITALS: BP 140/92
[2018-04-29] MEDS: MORPHINE SULFATE 4 MG/ML, 1ML IVPush PRN ×6 (01:26→22:31)
[2018-04-29] MEDS: PIPERACILLIN/TAZO/PMX 4.5GM 100 ML IV SCH ×3 (03:10→18:57)
[2018-04-29 05:44] LABS: CHLORIDE 100 mmol/L (98-107)
[2018-04-29 05:52] LABS: ALANINE AMINOTRANSFERASE 122 U/L (12-78); ALBUMIN 2.4 g/dL (3.4-5.0); ALKALINE PHOSPHATASE 705 U/L (45-117); ANION GAP 7 mmol/L (5-15); CALCIUM 7.9 mg/dL (8.5-10.1); CREATININE 0.65 mg/dL (0.7-1.3); TOTAL PROTEIN 7.3 g/dL (6.4-8.2)
[2018-04-29 06:37] VITALS: BP 126/90
[2018-04-29] MEDS: D5%-0.45NACL+KCL 20MEQ 1,000 ML IV SCH (11:40)
[2018-04-29] MEDS ORDERED: FENTANYL PF 100 MCG/2ML ONE (13:27)
[2018-04-29] MEDS ORDERED: PHENYLEPHRINE 10 MG/ML ONE (13:28)
[2018-04-29] MEDS ORDERED: LIDOCAINE 4%, 4 ML SYR/CANN TP ONE (13:28)
[2018-04-29] MEDS ORDERED: FENTANYL PF 100 MCG/2ML IV PRN (14:00)
[2018-04-29] MEDS ORDERED: MORPHINE SULFATE 4 MG/ML, 1ML IVPush PRN (14:00)
[2018-04-29] MEDS ORDERED: DIAZEPAM 5 MG/ML, 2ML IVPush PRN (14:00)
[2018-04-29] MEDS ORDERED: PROCHLORPERAZINE 5 MG/ML, 2ML IV PRN (14:00)
[2018-04-29] MEDS ORDERED: ONDANSETRON ODT 8 MG PO PRN (14:00)
[2018-04-29] MEDS ORDERED: ONDANSETRON 2MG/ML, 2ML IV PRN (14:00)
[2018-04-29] MEDS ORDERED: OXYcodone 5 MG/5 ML ORAL.SOL UDC PO PRN (14:00)
[2018-04-29] MEDS ORDERED: ROCURONIUM 10MG/ML,5ML ONE (15:15)
[2018-04-29] MEDS ORDERED: NEOSTIGMINE 1 MG/ML, 10ML ONE (15:15)
[2018-04-29] MEDS ORDERED: CEFAZOLIN 1,000 MG ONE (15:15)
[2018-04-29] MEDS ORDERED: ONDANSETRON 2MG/ML, 2ML ONE (15:15)
[2018-04-29] MEDS ORDERED: DEXAMETHASONE 4 MG/ML, 1ML ONE (15:15)
[2018-04-29] MEDS ORDERED: PROPOFOL 10 MG/ML, 20ML ONE (15:15)
[2018-04-29] MEDS ORDERED: SUCCINYLCHOLINE 20 MG/ML, 10ML ONE (15:15)
[2018-04-29] MEDS ORDERED: GLYCOPYRROLATE 0.2MG/1ML, 5ML ONE (15:15)
[2018-04-29] MEDS ORDERED: INDOMETHACIN 50 MG SUPP.RECT ONE (15:29)
[2018-04-29] MEDS ORDERED: OXYcodone 5 MG/5 ML ORAL.SOL UDC ONE (15:56)
[2018-04-29] MEDS ORDERED: INDOMETHACIN 50 MG SUPP.RECT PR ONE (16:00)
[2018-04-29 16:33] VITALS: BP 122/82
[2018-04-29] MEDS: NICOTINE 14MG/24 HR PATCH.TD24 TD SCH (18:56)
[2018-04-29] MEDS: OXYcodone IR 5MG TABLET PO PRN (18:57)
[2018-04-29 21:01] VITALS: BP 114/71
[2018-04-30] MEDS: OXYcodone IR 5MG TABLET PO PRN ×5 (00:11→22:55)
[2018-04-30] MEDS: NICOTINE 14MG/24 HR PATCH.TD24 TD SCH ×2 (00:19→19:11)
[2018-04-30 02:40] VITALS: BP 114/81
[2018-04-30] MEDS: MORPHINE SULFATE 4 MG/ML, 1ML IVPush PRN (02:53)
[2018-04-30] MEDS: PIPERACILLIN/TAZO/PMX 4.5GM 100 ML IV SCH ×3 (02:54→19:11)
[2018-04-30] MEDS: LORazepam 2 MG/ML, 1ML IVPush PRN ×2 (04:20→17:02)
[2018-04-30 05:38] LABS: MEAN CORPUSCULAR HEMOGLOBIN 24.7 pg (27.5-34.5); MEAN CORPUSCULAR HGB CONC 32.3 g/dL (33.2-36.2); MEAN CORPUSCULAR VOLUME 76.7 fL (81-97); MEAN PLATELET VOLUME 9.4 fL (7.4-10.4); PLATELET COUNT 223 x10^3/uL (130-400); RED BLOOD COUNT 4.42 x10^6/uL (4.38-5.82); RED CELL DISTRIBUTION WIDTH 24.5 % (9.4-14.8)
[2018-04-30 05:59] LABS: ALANINE AMINOTRANSFERASE 115 U/L (12-78); ALBUMIN 2.2 g/dL (3.4-5.0); CALCIUM 7.9 mg/dL (8.5-10.1); CHLORIDE 104 mmol/L (98-107)
[2018-04-30 06:02] LABS: ALKALINE PHOSPHATASE 654 U/L (45-117); ANION GAP 7 mmol/L (5-15); BILIRUBIN,TOTAL 0.8 mg/dL (0.2-1.0); TOTAL PROTEIN 6.9 g/dL (6.4-8.2)
[2018-04-30 06:13] LABS: BASOPHILS # (AUTO) 0.02 x10^3/uL (0-0.1); BASOPHILS % (AUTO) 0 % (0-1); EOSINOPHILS # (AUTO) 0.07 x10^3/uL (0-0.4); EOSINOPHILS % (AUTO) 2 % (1-7); LYMPHOCYTES # (AUTO) 0.74 x10^3/uL (1-3.4); LYMPHOCYTES % (AUTO) 19 % (22-44); MD SCAN; MONOCYTES # (AUTO) 0.36 x10^3/uL (0.2-0.8); MONOCYTES % (AUTO) 9 % (2-9); NEUTROPHILS # (AUTO) 2.73 x10^3/uL (1.8-6.8); NEUTROPHILS % (AUTO) 70 % (42-75)
[2018-04-30 07:30] VITALS: BP 123/85
[2018-04-30] MEDS ORDERED: MORPHINE SULFATE 4 MG/ML, 1ML IVPush PRN (08:00)
[2018-04-30 12:31] VITALS: BP 116/80
[2018-04-30] MEDS: PANTOPROZOLE 40MG TABLET PO SCH (16:18)
[2018-04-30 20:28] VITALS: BP 157/92
[2018-05-01] MEDS: LORazepam 2 MG/ML, 1ML IVPush PRN ×2 (02:10→17:40)
[2018-05-01] MEDS: OXYcodone IR 5MG TABLET PO PRN ×4 (02:47→23:23)
[2018-05-01] MEDS: PIPERACILLIN/TAZO/PMX 4.5GM 100 ML IV SCH (02:47)
[2018-05-01 03:33] VITALS: BP 154/98
[2018-05-01] MEDS: PANTOPROZOLE 40MG TABLET PO SCH ×2 (03:51→16:37)
[2018-05-01] MEDS: hydrALAzine 20 MG/ML, 1ML IVPush PRN (03:51)
[2018-05-01 04:56] LABS: ALBUMIN 2.4 g/dL (3.4-5.0); ANION GAP 6 mmol/L (5-15); CALCIUM 7.8 mg/dL (8.5-10.1); CHLORIDE 100 mmol/L (98-107)
[2018-05-01 05:05] LABS: ALANINE AMINOTRANSFERASE 148 U/L (12-78); ALKALINE PHOSPHATASE 844 U/L (45-117); BILIRUBIN,TOTAL 0.6 mg/dL (0.2-1.0); CREATININE 0.58 mg/dL (0.7-1.3); TOTAL PROTEIN 7.4 g/dL (6.4-8.2)
[2018-05-01 08:56] VITALS: BP 138/98
[2018-05-01 13:04] VITALS: BP_SYST 120; BP_SYST 125; BP_DIAS 63; BP_DIAS 83
[2018-05-01 19:18] VITALS: BP 135/97
[2018-05-01] MEDS: NICOTINE 14MG/24 HR PATCH.TD24 TD SCH (20:07)
[2018-05-02 01:41] VITALS: BP 126/89
[2018-05-02] MEDS: LORazepam 2 MG/ML, 1ML IVPush PRN ×3 (01:50→21:09)
[2018-05-02 04:47] LABS: INTERNATIONAL NORMALIZED RATIO 1.17 (0.93-1.1)
[2018-05-02 04:51] LABS: ALANINE AMINOTRANSFERASE 122 U/L (12-78); ALBUMIN 2.4 g/dL (3.4-5.0); ANION GAP 6 mmol/L (5-15); CALCIUM 8.7 mg/dL (8.5-10.1); CHLORIDE 102 mmol/L (98-107); CREATININE 0.54 mg/dL (0.7-1.3)
[2018-05-02 04:58] LABS: ALKALINE PHOSPHATASE 787 U/L (45-117); BILIRUBIN,TOTAL 0.6 mg/dL (0.2-1.0); TOTAL PROTEIN 7.5 g/dL (6.4-8.2)
[2018-05-02] MEDS: PANTOPROZOLE 40MG TABLET PO SCH ×2 (05:38→17:58)
[2018-05-02 05:49] LABS: MEAN CORPUSCULAR HEMOGLOBIN 24.8 pg (27.5-34.5); MEAN CORPUSCULAR HGB CONC 32.8 g/dL (33.2-36.2); MEAN CORPUSCULAR VOLUME 75.6 fL (81-97); MEAN PLATELET VOLUME 9.1 fL (7.4-10.4); PLATELET COUNT 287 x10^3/uL (130-400); RED BLOOD COUNT 4.84 x10^6/uL (4.38-5.82); RED CELL DISTRIBUTION WIDTH 23.4 % (9.4-14.8)
[2018-05-02 05:53] LABS: BASOPHILS # (AUTO) 0.03 x10^3/uL (0-0.1); BASOPHILS % (AUTO) 0 % (0-1); EOSINOPHILS # (AUTO) 0.06 x10^3/uL (0-0.4); EOSINOPHILS % (AUTO) 1 % (1-7); LYMPHOCYTES # (AUTO) 1.44 x10^3/uL (1-3.4); LYMPHOCYTES % (AUTO) 23 % (22-44); MD MORPH REVIEW ONLY; MONOCYTES # (AUTO) 0.82 x10^3/uL (0.2-0.8); MONOCYTES % (AUTO) 13 % (2-9); NEUTROPHILS # (AUTO) 3.86 x10^3/uL (1.8-6.8); NEUTROPHILS % (AUTO) 62 % (42-75)
[2018-05-02 05:54] LABS: ANISOCYTOSIS 1+; MICROCYTOSIS 1+; TARGET CELLS 1+
[2018-05-02 05:55] LABS: <PLATELET ESTIMATE> ADEQUATE; <PLT MORPHOLOGY> NORMAL PLT MORPH; HYPOCHROMIA 1+
[2018-05-02] MEDS: OXYcodone IR 5MG TABLET PO PRN ×4 (09:01→17:58)
[2018-05-02] MEDS: CEFTRIAXONE PMX 2GM/50ML 50 ML IV SCH (10:10)
[2018-05-02 10:15] VITALS: BP 120/79
[2018-05-02] MEDS ORDERED: OMNIPAQUE 350 MG/ML, 100ML BOTTLE ONE (11:50)
[2018-05-02 14:30] VITALS: BP 134/66
[2018-05-02] MEDS: NICOTINE 14MG/24 HR PATCH.TD24 TD SCH (19:30)
[2018-05-02 19:32] VITALS: BP 148/92
[2018-05-03] MEDS: OXYcodone IR 5MG TABLET PO PRN ×6 (01:45→19:50)
[2018-05-03 02:50] VITALS: BP 126/89
[2018-05-03 03:52] LABS: MEAN CORPUSCULAR HEMOGLOBIN 24.6 pg (27.5-34.5); MEAN CORPUSCULAR HGB CONC 32.6 g/dL (33.2-36.2); MEAN CORPUSCULAR VOLUME 75.4 fL (81-97); MEAN PLATELET VOLUME 9.4 fL (7.4-10.4); PLATELET COUNT 341 x10^3/uL (130-400); RED BLOOD COUNT 4.93 x10^6/uL (4.38-5.82); RED CELL DISTRIBUTION WIDTH 23.4 % (9.4-14.8)
[2018-05-03 04:02] LABS: ALBUMIN 2.5 g/dL (3.4-5.0); ANION GAP 8 mmol/L (5-15); CALCIUM 8.4 mg/dL (8.5-10.1); CHLORIDE 102 mmol/L (98-107)
[2018-05-03 04:06] LABS: ALANINE AMINOTRANSFERASE 114 U/L (12-78); ALKALINE PHOSPHATASE 895 U/L (45-117); BILIRUBIN,TOTAL 0.8 mg/dL (0.2-1.0); CREATININE 0.61 mg/dL (0.7-1.3)
[2018-05-03 04:26] LABS: BASOPHILS # (AUTO) 0.04 x10^3/uL (0-0.1); BASOPHILS % (AUTO) 1 % (0-1); EOSINOPHILS # (AUTO) 0.06 x10^3/uL (0-0.4); EOSINOPHILS % (AUTO) 1 % (1-7); LYMPHOCYTES # (AUTO) 1.58 x10^3/uL (1-3.4); LYMPHOCYTES % (AUTO) 23 % (22-44); MD SCAN; MONOCYTES # (AUTO) 0.91 x10^3/uL (0.2-0.8); MONOCYTES % (AUTO) 13 % (2-9); NEUTROPHILS # (AUTO) 4.36 x10^3/uL (1.8-6.8); NEUTROPHILS % (AUTO) 63 % (42-75)
[2018-05-03] MEDS: LORazepam 2 MG/ML, 1ML IVPush PRN ×3 (04:45→22:27)
[2018-05-03] MEDS: PANTOPROZOLE 40MG TABLET PO SCH ×2 (06:15→18:11)
[2018-05-03] MEDS: CEFTRIAXONE PMX 2GM/50ML 50 ML IV SCH (09:43)
[2018-05-03 14:56] VITALS: BP 141/88
[2018-05-03] MEDS: NICOTINE 14MG/24 HR PATCH.TD24 TD SCH (19:49)
[2018-05-03 21:37] VITALS: BP 153/103
[2018-05-04 02:25] VITALS: BP 144/94
[2018-05-04] MEDS: LORazepam 2 MG/ML, 1ML IVPush PRN ×4 (04:43→22:37)
[2018-05-04] MEDS: PANTOPROZOLE 40MG TABLET PO SCH ×2 (05:42→17:47)
[2018-05-04 05:51] LABS: MEAN CORPUSCULAR HEMOGLOBIN 24.6 pg (27.5-34.5); MEAN CORPUSCULAR VOLUME 74.7 fL (81-97); MEAN PLATELET VOLUME 9.4 fL (7.4-10.4); PLATELET COUNT 324 x10^3/uL (130-400); RED BLOOD COUNT 4.92 x10^6/uL (4.38-5.82); RED CELL DISTRIBUTION WIDTH 23.1 % (9.4-14.8)
[2018-05-04 05:52] LABS: CHLORIDE 102 mmol/L (98-107)
[2018-05-04 06:16] LABS: ALANINE AMINOTRANSFERASE 125 U/L (12-78); ALBUMIN 2.7 g/dL (3.4-5.0); ALKALINE PHOSPHATASE 987 U/L (45-117); ANION GAP 11 mmol/L (5-15); BILIRUBIN,TOTAL 0.9 mg/dL (0.2-1.0); CALCIUM 8.8 mg/dL (8.5-10.1); TOTAL PROTEIN 8.6 g/dL (6.4-8.2)
[2018-05-04 06:50] LABS: BASOPHILS # (AUTO) 0.03 x10^3/uL (0-0.1); BASOPHILS % (AUTO) 0 % (0-1); EOSINOPHILS # (AUTO) 0.02 x10^3/uL (0-0.4); EOSINOPHILS % (AUTO) 0 % (1-7); LYMPHOCYTES # (AUTO) 1.35 x10^3/uL (1-3.4); LYMPHOCYTES % (AUTO) 17 % (22-44); MD SCAN; MONOCYTES # (AUTO) 1.02 x10^3/uL (0.2-0.8); MONOCYTES % (AUTO) 13 % (2-9); NEUTROPHILS # (AUTO) 5.53 x10^3/uL (1.8-6.8); NEUTROPHILS % (AUTO) 70 % (42-75)
[2018-05-04 07:00] VITALS: BP 137/89
[2018-05-04] MEDS: OXYcodone IR 5MG TABLET PO PRN ×3 (07:44→22:07)
[2018-05-04] MEDS: CEFTRIAXONE PMX 2GM/50ML 50 ML IV SCH (08:42)
[2018-05-04 13:58] VITALS: BP 149/97
[2018-05-04] MEDS: NICOTINE 14MG/24 HR PATCH.TD24 TD SCH (19:31)
[2018-05-04 21:00] VITALS: BP 151/98
[2018-05-05 01:26] VITALS: BP 150/90
[2018-05-05] MEDS: OXYcodone IR 5MG TABLET PO PRN ×5 (04:37→23:44)
[2018-05-05] MEDS: LORazepam 2 MG/ML, 1ML IVPush PRN ×3 (06:04→22:13)
[2018-05-05] MEDS: PANTOPROZOLE 40MG TABLET PO SCH ×2 (06:04→17:08)
[2018-05-05 08:10] VITALS: BP 133/91
[2018-05-05 12:45] VITALS: BP 148/105
[2018-05-05] MEDS: CEFTRIAXONE PMX 2GM/50ML 50 ML IV SCH (15:21)
[2018-05-05 19:19] VITALS: BP 151/95
[2018-05-05] MEDS: NICOTINE 14MG/24 HR PATCH.TD24 TD SCH (19:24)
[2018-05-05] MEDS: ONDANSETRON 2MG/ML, 2ML IVPush PRN (21:12)
[2018-05-06 01:46] VITALS: BP 141/89
[2018-05-06] MEDS: OXYcodone IR 5MG TABLET PO PRN ×3 (02:47→23:35)
[2018-05-06 04:41] LABS: MEAN CORPUSCULAR HEMOGLOBIN 24.8 pg (27.5-34.5); MEAN CORPUSCULAR HGB CONC 33.3 g/dL (33.2-36.2); MEAN CORPUSCULAR VOLUME 74.5 fL (81-97); MEAN PLATELET VOLUME 9.7 fL (7.4-10.4); PLATELET COUNT 299 x10^3/uL (130-400); RED BLOOD COUNT 4.64 x10^6/uL (4.38-5.82); RED CELL DISTRIBUTION WIDTH 22.5 % (9.4-14.8)
[2018-05-06 04:46] LABS: INTERNATIONAL NORMALIZED RATIO 1.08 (0.93-1.1); PROTHROMBIN TIME 11.1 Seconds (9.6-11.5)
[2018-05-06 04:53] LABS: CALCIUM 8.2 mg/dL (8.5-10.1); CHLORIDE 101 mmol/L (98-107)
[2018-05-06 04:59] LABS: ALANINE AMINOTRANSFERASE 105 U/L (12-78); ALBUMIN 2.4 g/dL (3.4-5.0); ALKALINE PHOSPHATASE 989 U/L (45-117); ANION GAP 9 mmol/L (5-15); BILIRUBIN,TOTAL 0.8 mg/dL (0.2-1.0); CREATININE 0.54 mg/dL (0.7-1.3); TOTAL PROTEIN 7.8 g/dL (6.4-8.2)
[2018-05-06] MEDS: PANTOPROZOLE 40MG TABLET PO SCH ×2 (05:11→17:31)
[2018-05-06 06:01] LABS: BASOPHILS # (AUTO) 0.03 x10^3/uL (0-0.1); BASOPHILS % (AUTO) 0 % (0-1); EOSINOPHILS # (AUTO) 0.02 x10^3/uL (0-0.4); EOSINOPHILS % (AUTO) 0 % (1-7); LYMPHOCYTES % (AUTO) 9 % (22-44); MD SCAN; MONOCYTES # (AUTO) 0.61 x10^3/uL (0.2-0.8); MONOCYTES % (AUTO) 7 % (2-9); NEUTROPHILS # (AUTO) 7.53 x10^3/uL (1.8-6.8); NEUTROPHILS % (AUTO) 84 % (42-75)
[2018-05-06 07:10] VITALS: BP 132/96
[2018-05-06] MEDS ORDERED: ETOMIDATE 20 MG/10 ML ONE (09:23)
[2018-05-06] MEDS ORDERED: FENTANYL PF 100 MCG/2ML ONE ×2 (09:23→10:19)
[2018-05-06] MEDS ORDERED: DEXAMETHASONE 4 MG/ML, 1ML ONE (09:50)
[2018-05-06] MEDS ORDERED: SUCCINYLCHOLINE 20 MG/ML, 10ML ONE (09:50)
[2018-05-06] MEDS ORDERED: ONDANSETRON 2MG/ML, 2ML ONE ×2 (09:50→10:54)
[2018-05-06] MEDS ORDERED: PROPOFOL 10 MG/ML, 20ML ONE (09:50)
[2018-05-06] MEDS ORDERED: PROCHLORPERAZINE 5 MG/ML, 2ML IV PRN (10:30)
[2018-05-06] MEDS ORDERED: LABETALOL 5MG/ML, 20ML IV PRN (10:30)
[2018-05-06] MEDS ORDERED: HYDROmorphone 1 MG/ML, 1ML IV PRN (10:30)
[2018-05-06] MEDS ORDERED: DIPHENHYDRAMINE 50 MG/ML, 1ML IVPush PRN (10:30)
[2018-05-06] MEDS ORDERED: MEPERIDINE/PF 25MG/0.5ML IVPush PRN (10:30)
[2018-05-06] MEDS ORDERED: FENTANYL PF 100 MCG/2ML IV PRN (10:30)
[2018-05-06] MEDS ORDERED: hydrALAzine 20 MG/ML, 1ML IV PRN (10:30)
[2018-05-06] MEDS ORDERED: INDOMETHACIN 50 MG SUPP.RECT ONE (10:54)
[2018-05-06] MEDS ORDERED: INDOMETHACIN 50 MG SUPP.RECT PR ONE (11:00)
[2018-05-06] MEDS: LORazepam 2 MG/ML, 1ML IVPush PRN (12:22)
[2018-05-06 12:34] VITALS: BP 121/85
[2018-05-06] MEDS: CEFTRIAXONE PMX 2GM/50ML 50 ML IV SCH (15:28)
[2018-05-06 20:27] VITALS: BP 123/88
[2018-05-06] MEDS: NICOTINE 14MG/24 HR PATCH.TD24 TD SCH (22:10)
[2018-05-07] MEDS: LORazepam 2 MG/ML, 1ML IVPush PRN ×3 (02:16→20:09)
[2018-05-07 02:18] VITALS: BP 124/80
[2018-05-07 04:39] LABS: MEAN CORPUSCULAR HEMOGLOBIN 24.8 pg (27.5-34.5); MEAN CORPUSCULAR HGB CONC 32.8 g/dL (33.2-36.2); MEAN CORPUSCULAR VOLUME 75.6 fL (81-97); MEAN PLATELET VOLUME 9.7 fL (7.4-10.4); PLATELET COUNT 307 x10^3/uL (130-400); RED BLOOD COUNT 4.37 x10^6/uL (4.38-5.82); RED CELL DISTRIBUTION WIDTH 23.3 % (9.4-14.8)
[2018-05-07 04:40] LABS: ALBUMIN 1.9 g/dL (3.4-5.0); ANION GAP 8 mmol/L (5-15); CALCIUM 8.2 mg/dL (8.5-10.1); CHLORIDE 108 mmol/L (98-107)
[2018-05-07 04:44] LABS: ALANINE AMINOTRANSFERASE 86 U/L (12-78); ALKALINE PHOSPHATASE 861 U/L (45-117); BILIRUBIN,TOTAL 0.8 mg/dL (0.2-1.0); CREATININE 0.54 mg/dL (0.7-1.3); TOTAL PROTEIN 7.2 g/dL (6.4-8.2)
[2018-05-07 05:57] LABS: BASOPHILS # (AUTO) 0.01 x10^3/uL (0-0.1); BASOPHILS % (AUTO) 0 % (0-1); EOSINOPHILS % (AUTO) 0 % (1-7); LYMPHOCYTES # (AUTO) 1.03 x10^3/uL (1-3.4); LYMPHOCYTES % (AUTO) 10 % (22-44); MD SCAN; MONOCYTES # (AUTO) 0.58 x10^3/uL (0.2-0.8); MONOCYTES % (AUTO) 6 % (2-9); NEUTROPHILS # (AUTO) 8.38 x10^3/uL (1.8-6.8); NEUTROPHILS % (AUTO) 84 % (42-75)
[2018-05-07 06:58] VITALS: BP 119/80
[2018-05-07] MEDS: PANTOPROZOLE 40MG TABLET PO SCH ×2 (07:04→17:55)
[2018-05-07] MEDS: OXYcodone IR 5MG TABLET PO PRN ×2 (07:08→14:36)
[2018-05-07 13:19] VITALS: BP 119/85
[2018-05-07] MEDS: CEFTRIAXONE PMX 2GM/50ML 50 ML IV SCH (15:33)
[2018-05-07 18:55] VITALS: BP 120/84
[2018-05-07] MEDS: NICOTINE 14MG/24 HR PATCH.TD24 TD SCH (20:14)
[2018-05-08 01:15] VITALS: BP 130/82
[2018-05-08] MEDS: OXYcodone IR 5MG TABLET PO PRN ×3 (02:05→15:53)
[2018-05-08] MEDS: LORazepam 2 MG/ML, 1ML IVPush PRN ×3 (04:22→21:11)
[2018-05-08] MEDS: PANTOPROZOLE 40MG TABLET PO SCH ×2 (05:31→15:53)
[2018-05-08 06:50] VITALS: BP 137/99
[2018-05-08 09:39] LABS: ALBUMIN 2.3 g/dL (3.4-5.0); ANION GAP 8 mmol/L (5-15); CALCIUM 8.2 mg/dL (8.5-10.1); CHLORIDE 103 mmol/L (98-107)
[2018-05-08 09:43] LABS: ALANINE AMINOTRANSFERASE 111 U/L (12-78); ALKALINE PHOSPHATASE 863 U/L (45-117); BILIRUBIN,TOTAL 0.6 mg/dL (0.2-1.0); CREATININE 0.54 mg/dL (0.7-1.3); TOTAL PROTEIN 7.3 g/dL (6.4-8.2)
[2018-05-08] MEDS: CEFTRIAXONE PMX 2GM/50ML 50 ML IV SCH (15:53)
[2018-05-08] MEDS: NICOTINE 14MG/24 HR PATCH.TD24 TD SCH (19:39)
[2018-05-08 20:21] VITALS: BP 142/95
== END 2018-05-08 23:39 | disposition left against medical advice (07) | DRG 417 ==
LOC: ED 12:44 → EDIP 12:55 → 3NW 13:38
PROVIDERS: ADMIT Hospitalist; ATTEND Hospitalist
PROC: 0FB04ZX Excision of Liver, Percutaneous Endoscopic Approach, Diagnostic (ICD-10-PCS; 2018-04-27)
PROC: BF131ZZ Fluoroscopy of Gallbladder and Bile Ducts using Low Osmolar Contrast (ICD-10-PCS; 2018-04-27)
PROC: 0FT44ZZ Resection of Gallbladder, Percutaneous Endoscopic Approach (ICD-10-PCS; principal; 2018-04-27 16:00)
PROC: 0FJB8ZZ Inspection of Hepatobiliary Duct, Via Natural or Artificial Opening Endoscopic (ICD-10-PCS; 2018-04-29)
PROC: 0FJD8ZZ Inspection of Pancreatic Duct, Via Natural or Artificial Opening Endoscopic (ICD-10-PCS; 2018-04-29)
PROC: 0FJB8ZZ Inspection of Hepatobiliary Duct, Via Natural or Artificial Opening Endoscopic (ICD-10-PCS; 2018-05-06)
PROC: 0FJD8ZZ Inspection of Pancreatic Duct, Via Natural or Artificial Opening Endoscopic (ICD-10-PCS; 2018-05-06)
DX: K85.10 Biliary acute pancreatitis without necrosis or infection (principal); I81 Portal vein thrombosis; K22.6 Gastro-esophageal laceration-hemorrhage syndrome; E43 Unspecified severe protein-calorie malnutrition; B17.9 Acute viral hepatitis, unspecified; C22.0 Liver cell carcinoma; K76.6 Portal hypertension; R18.8 Other ascites; K80.70 Calculus of gallbladder and bile duct without cholecystitis without obstruction; B18.2 Chronic viral hepatitis C; D50.9 Iron deficiency anemia, unspecified; K21.9 Gastro-esophageal reflux disease without esophagitis; F17.210 Nicotine dependence, cigarettes, uncomplicated; I10 Essential (primary) hypertension; Z66 Do not resuscitate; K74.60 Unspecified cirrhosis of liver; G89.29 Other chronic pain; M54.9 Dorsalgia, unspecified; K63.5 Polyp of colon; K66.0 Peritoneal adhesions (postprocedural) (postinfection); Z51.5 Encounter for palliative care; Z59.0 Homelessness; Z79.01 Long term (current) use of anticoagulants; Z80.0 Family history of malignant neoplasm of digestive organs; Z80.3 Family history of malignant neoplasm of breast; Z85.05 Personal history of malignant neoplasm of liver; Z87.19 Personal history of other diseases of the digestive system; Z86.010 Personal history of colon polyps; Z86.718 Personal history of other venous thrombosis and embolism; Z68.21 Body mass index [BMI] 21.0-21.9, adult; Z53.21 Procedure and treatment not carried out due to patient leaving prior to being seen by health care provider
CPT/HCPCS: 36415; 74021; 74300; 76001; 99285; J3490; 74178; 74181; 74328; 76700; 80053; 83690; 83735; 84100; 85025; 85610; 88304; 88307; 88313; 93970; 96374; G0378; J0690; J0696; J1100; J1170; J2405; J2543; J2704; J2710; J3010; Q9967; C1769; C9113; J0330; J0360; J2060; J2370; J3480; J7030; S0074

== ENCOUNTER 2018-05-11 21:57 | Inpatient (IN) | payer MEDICAID ==
[~2018-05-11] VITALS: Ht 182.9 cm; Wt 68.0 kg
[2018-05-11] MEDS ORDERED: SODIUM CHLORIDE 0.9% 1,000 ML IV ONE (22:07)
[2018-05-11] MEDS ORDERED: ONDANSETRON 2MG/ML, 2ML ONE (22:24)
[2018-05-11] MEDS ORDERED: SODIUM CHLORIDE FLUSH 10ML SYR IVF ONE (22:30)
[2018-05-11] MEDS ORDERED: ONDANSETRON 2MG/ML, 2ML IVPush ONE (22:30)
[2018-05-11 22:53] LABS: BASOPHILS # (AUTO) 0.03 x10^3/uL (0-0.1); BASOPHILS % (AUTO) 0 % (0-1); EOSINOPHILS # (AUTO) 0.01 x10^3/uL (0-0.4); EOSINOPHILS % (AUTO) 0 % (1-7); LYMPHOCYTES # (AUTO) 0.66 x10^3/uL (1-3.4); LYMPHOCYTES % (AUTO) 7 % (22-44); MD NO; MEAN CORPUSCULAR HEMOGLOBIN 25.1 pg (27.5-34.5); MEAN CORPUSCULAR HGB CONC 33.6 g/dL (33.2-36.2); MEAN CORPUSCULAR VOLUME 74.5 fL (81-97); MEAN PLATELET VOLUME 8.9 fL (7.4-10.4); MONOCYTES # (AUTO) 0.57 x10^3/uL (0.2-0.8); MONOCYTES % (AUTO) 6 % (2-9); NEUTROPHILS # (AUTO) 8.38 x10^3/uL (1.8-6.8); NEUTROPHILS % (AUTO) 87 % (42-75); PLATELET COUNT 404 x10^3/uL (130-400); RED BLOOD COUNT 4.53 x10^6/uL (4.38-5.82); RED CELL DISTRIBUTION WIDTH 21.6 % (9.4-14.8)
[2018-05-11 22:59] LABS: INTERNATIONAL NORMALIZED RATIO 1.1 (0.93-1.1); PROTHROMBIN TIME 11.4 Seconds (9.6-11.5)
[2018-05-11 23:01] LABS: ALANINE AMINOTRANSFERASE 100 U/L (12-78); ALBUMIN 2.6 g/dL (3.4-5.0); ANION GAP 12 mmol/L (5-15); CHLORIDE 100 mmol/L (98-107)
[2018-05-11 23:04] LABS: ALKALINE PHOSPHATASE 998 U/L (45-117); BILIRUBIN,TOTAL 1.3 mg/dL (0.2-1.0); TOTAL PROTEIN 8.4 g/dL (6.4-8.2)
[2018-05-11] MEDS ORDERED: LORazepam 2 MG/ML, 1ML ONE (23:11)
[2018-05-11] MEDS ORDERED: PANTOPRAZOLE 40 MG IV ONE (23:12)
[2018-05-11] MEDS ORDERED: DOCUSATE 100 MG CAPSULE PO PRN (23:30)
[2018-05-11] MEDS ORDERED: ONDANSETRON 2MG/ML, 2ML IVPush PRN (23:30)
[2018-05-11] MEDS ORDERED: LORazepam 2 MG/ML, 1ML IVPush ONE (23:30)
[2018-05-11] MEDS ORDERED: POLYETHYLENE GLYCOL 17 GM PACKET PO PRN (23:30)
[2018-05-11] MEDS ORDERED: PANTOPRAZOLE 40 MG IV IVPush ONE (23:30)
[2018-05-12 00:42] VITALS: BP 130/89
[2018-05-12] MEDS ORDERED: APIXABAN/LOVENOX MC SCH (01:00)
[2018-05-12 01:03] VITALS: BP 145/91
[2018-05-12] MEDS: FAMOTIDINE 20 MG/2 ML IVPush SCH ×3 (01:39→21:18)
[2018-05-12] MEDS: ENOXAPARIN 40 MG/0.4 ML SQ SCH (01:42)
[2018-05-12] MEDS: SODIUM CHLORIDE 0.9% 1,000 ML IV SCH ×2 (01:50→10:36)
[2018-05-12 04:55] LABS: BASOPHILS # (AUTO) 0.01 x10^3/uL (0-0.1); BASOPHILS % (AUTO) 0 % (0-1); EOSINOPHILS # (AUTO) 0.01 x10^3/uL (0-0.4); EOSINOPHILS % (AUTO) 0 % (1-7); LYMPHOCYTES # (AUTO) 1.02 x10^3/uL (1-3.4); LYMPHOCYTES % (AUTO) 13 % (22-44); MD NO; MEAN CORPUSCULAR HEMOGLOBIN 24.4 pg (27.5-34.5); MEAN CORPUSCULAR HGB CONC 32.4 g/dL (33.2-36.2); MEAN CORPUSCULAR VOLUME 75.2 fL (81-97); MEAN PLATELET VOLUME 8.9 fL (7.4-10.4); MONOCYTES # (AUTO) 0.46 x10^3/uL (0.2-0.8); MONOCYTES % (AUTO) 6 % (2-9); NEUTROPHILS % (AUTO) 80 % (42-75); PLATELET COUNT 298 x10^3/uL (130-400); RED CELL DISTRIBUTION WIDTH 21.4 % (9.4-14.8)
[2018-05-12 05:03] LABS: ALBUMIN 2.2 g/dL (3.4-5.0); ANION GAP 10 mmol/L (5-15); CALCIUM 7.7 mg/dL (8.5-10.1); CHLORIDE 104 mmol/L (98-107)
[2018-05-12 05:07] LABS: ALANINE AMINOTRANSFERASE 79 U/L (12-78); ALKALINE PHOSPHATASE 759 U/L (45-117); CREATININE 0.48 mg/dL (0.7-1.3); TOTAL PROTEIN 6.7 g/dL (6.4-8.2)
[2018-05-12 06:20] LABS: CULTURE INDICATED? NO; MICROSCOPIC NOT IND
[2018-05-12 07:06] VITALS: BP 130/84
[2018-05-12] MEDS: FERROUS SULFATE 325 MG TABLET PO SCH ×2 (08:00→17:00)
[2018-05-12] MEDS ORDERED: APIXABAN 5 MG TABLET PO SCH (09:00)
[2018-05-12] MEDS: SENNA/DOCUSATE TABLET PO SCH (09:00)
[2018-05-12] MEDS: NICOTINE 14MG/24 HR PATCH.TD24 TD SCH (09:00)
[2018-05-12] MEDS: morphine SULFATE 10 MG/ML, 1ML IVPush PRN (10:34)
[2018-05-12 12:35] VITALS: BP 121/83
[2018-05-12] MEDS: LORazepam 2 MG/ML, 1ML IVPush PRN ×2 (17:07→21:18)
[2018-05-12 18:56] VITALS: BP 139/85
[2018-05-13 02:01] VITALS: BP 127/84
[2018-05-13] MEDS: LORazepam 2 MG/ML, 1ML IVPush PRN ×3 (02:24→22:10)
[2018-05-13] MEDS: ENOXAPARIN 40 MG/0.4 ML SQ SCH (02:28)
[2018-05-13 04:55] LABS: BASOPHILS # (AUTO) 0.02 x10^3/uL (0-0.1); BASOPHILS % (AUTO) 1 % (0-1); EOSINOPHILS # (AUTO) 0.04 x10^3/uL (0-0.4); EOSINOPHILS % (AUTO) 1 % (1-7); LYMPHOCYTES # (AUTO) 0.92 x10^3/uL (1-3.4); LYMPHOCYTES % (AUTO) 26 % (22-44); MD NO; MEAN CORPUSCULAR HEMOGLOBIN 25.2 pg (27.5-34.5); MEAN CORPUSCULAR HGB CONC 33.5 g/dL (33.2-36.2); MEAN CORPUSCULAR VOLUME 75.2 fL (81-97); MEAN PLATELET VOLUME 8.9 fL (7.4-10.4); MONOCYTES # (AUTO) 0.39 x10^3/uL (0.2-0.8); MONOCYTES % (AUTO) 11 % (2-9); NEUTROPHILS # (AUTO) 2.16 x10^3/uL (1.8-6.8); NEUTROPHILS % (AUTO) 61 % (42-75); PLATELET COUNT 262 x10^3/uL (130-400); RED BLOOD COUNT 4.24 x10^6/uL (4.38-5.82); RED CELL DISTRIBUTION WIDTH 21.6 % (9.4-14.8)
[2018-05-13 05:03] LABS: ALBUMIN 2.1 g/dL (3.4-5.0); ANION GAP 9 mmol/L (5-15); CALCIUM 7.7 mg/dL (8.5-10.1); CHLORIDE 107 mmol/L (98-107)
[2018-05-13 05:06] LABS: ALANINE AMINOTRANSFERASE 76 U/L (12-78); ALKALINE PHOSPHATASE 737 U/L (45-117); BILIRUBIN,TOTAL 0.7 mg/dL (0.2-1.0); CREATININE 0.56 mg/dL (0.7-1.3); TOTAL PROTEIN 6.5 g/dL (6.4-8.2)
[2018-05-13 07:15] VITALS: BP 137/89
[2018-05-13] MEDS: NICOTINE 14MG/24 HR PATCH.TD24 TD SCH (08:24)
[2018-05-13] MEDS: SENNA/DOCUSATE TABLET PO SCH (08:24)
[2018-05-13] MEDS: FERROUS SULFATE 325 MG TABLET PO SCH ×2 (08:24→16:59)
[2018-05-13] MEDS: FAMOTIDINE 20 MG/2 ML IVPush SCH ×2 (08:24→19:40)
[2018-05-13 12:37] VITALS: BP 127/84
[2018-05-13] MEDS: SODIUM CHLORIDE 0.9% 1,000 ML IV SCH (14:47)
[2018-05-13] MEDS: morphine SULFATE 10 MG/ML, 1ML IVPush PRN ×2 (14:47→19:40)
[2018-05-13 20:13] VITALS: BP 125/84
[2018-05-13 22:39] LABS: CLOSTRIDIUM DIFFICILE ANTIGEN NEGATIVE; CLOSTRIDIUM DIFFICILE TOXIN NEGATIVE (Negative)
[2018-05-14 01:15] VITALS: BP 134/87
[2018-05-14] MEDS: morphine SULFATE 10 MG/ML, 1ML IVPush PRN ×3 (01:19→20:37)
[2018-05-14] MEDS: ENOXAPARIN 40 MG/0.4 ML SQ SCH (01:20)
[2018-05-14] MEDS: SODIUM CHLORIDE 0.9% 1,000 ML IV SCH ×2 (04:27→17:51)
[2018-05-14 05:05] LABS: ALANINE AMINOTRANSFERASE 89 U/L (12-78); ALBUMIN 2.1 g/dL (3.4-5.0); ANION GAP 8 mmol/L (5-15); CALCIUM 7.6 mg/dL (8.5-10.1); CHLORIDE 107 mmol/L (98-107); CREATININE 0.56 mg/dL (0.7-1.3)
[2018-05-14 05:07] LABS: ALKALINE PHOSPHATASE 785 U/L (45-117); BILIRUBIN,TOTAL 0.7 mg/dL (0.2-1.0); TOTAL PROTEIN 6.9 g/dL (6.4-8.2)
[2018-05-14 06:51] VITALS: BP 137/89
[2018-05-14] MEDS: FERROUS SULFATE 325 MG TABLET PO SCH ×2 (08:00→17:47)
[2018-05-14] MEDS: LORazepam 2 MG/ML, 1ML IVPush PRN ×3 (08:23→17:47)
[2018-05-14] MEDS: FAMOTIDINE 20 MG/2 ML IVPush SCH ×2 (08:31→20:32)
[2018-05-14] MEDS: SENNA/DOCUSATE TABLET PO SCH (08:32)
[2018-05-14] MEDS: NICOTINE 14MG/24 HR PATCH.TD24 TD SCH (08:32)
[2018-05-14 12:39] VITALS: BP 136/88
[2018-05-14 19:20] VITALS: BP 129/82
[2018-05-14] MEDS: PROMETHAZINE 25 MG/ML, 1ML IM PRN (19:55)
[2018-05-14] MEDS: OXYcodone IR 5MG TABLET PO PRN (19:55)
[2018-05-15] MEDS: ENOXAPARIN 40 MG/0.4 ML SQ SCH ×2 (01:06→20:25)
[2018-05-15] MEDS: OXYcodone IR 5MG TABLET PO PRN ×4 (01:06→16:55)
[2018-05-15 01:45] VITALS: BP 122/76
[2018-05-15] MEDS: morphine SULFATE 10 MG/ML, 1ML IVPush PRN (03:52)
[2018-05-15] MEDS: SODIUM CHLORIDE 0.9% 1,000 ML IV SCH (05:36)
[2018-05-15 07:16] VITALS: BP 139/93
[2018-05-15] MEDS: NICOTINE 14MG/24 HR PATCH.TD24 TD SCH (08:02)
[2018-05-15] MEDS: FAMOTIDINE 20 MG/2 ML IVPush SCH ×2 (08:15→20:19)
[2018-05-15] MEDS: SENNA/DOCUSATE TABLET PO SCH (08:15)
[2018-05-15] MEDS: FERROUS SULFATE 325 MG TABLET PO SCH ×2 (08:15→16:55)
[2018-05-15 14:27] VITALS: BP 148/94
[2018-05-15] MEDS: LORazepam 2 MG/ML, 1ML IVPush PRN ×2 (15:15→20:20)
[2018-05-15 19:04] VITALS: BP 142/89
[2018-05-15] MEDS: PROMETHAZINE 25 MG/ML, 1ML IM PRN (20:20)
[2018-05-16 02:27] VITALS: BP 125/68
[2018-05-16 08:29] VITALS: BP 135/89
[2018-05-16] MEDS: FAMOTIDINE 20 MG/2 ML IVPush SCH ×2 (08:34→20:16)
[2018-05-16] MEDS: OXYcodone IR 5MG TABLET PO PRN ×3 (08:35→20:16)
[2018-05-16] MEDS: SENNA/DOCUSATE TABLET PO SCH (08:35)
[2018-05-16] MEDS: FERROUS SULFATE 325 MG TABLET PO SCH ×2 (08:35→17:05)
[2018-05-16] MEDS: NICOTINE 14MG/24 HR PATCH.TD24 TD SCH (09:10)
[2018-05-16] MEDS: LORazepam 2 MG/ML, 1ML IVPush PRN ×3 (12:34→21:12)
[2018-05-16 14:30] VITALS: BP 126/91
[2018-05-16] MEDS: PROMETHAZINE 25 MG/ML, 1ML IM PRN (18:43)
[2018-05-16] MEDS: ENOXAPARIN 40 MG/0.4 ML SQ SCH (20:16)
[2018-05-16 20:26] VITALS: BP 137/82
[2018-05-17] MEDS: OXYcodone IR 5MG TABLET PO PRN ×3 (00:38→22:27)
[2018-05-17 02:04] VITALS: BP 119/63
[2018-05-17 08:30] VITALS: BP 125/87
[2018-05-17] MEDS: NICOTINE 14MG/24 HR PATCH.TD24 TD SCH (09:00)
[2018-05-17] MEDS: SENNA/DOCUSATE TABLET PO SCH (09:44)
[2018-05-17] MEDS: FAMOTIDINE 20 MG/2 ML IVPush SCH ×2 (09:44→20:04)
[2018-05-17] MEDS: FERROUS SULFATE 325 MG TABLET PO SCH ×2 (09:44→18:01)
[2018-05-17] MEDS: LORazepam 2 MG/ML, 1ML IVPush PRN ×3 (10:23→20:04)
[2018-05-17 11:58] LABS: ALBUMIN 2.2 g/dL (3.4-5.0); ANION GAP 10 mmol/L (5-15); CALCIUM 8.6 mg/dL (8.5-10.1); CHLORIDE 104 mmol/L (98-107)
[2018-05-17 12:02] LABS: ALANINE AMINOTRANSFERASE 96 U/L (12-78); ALKALINE PHOSPHATASE 905 U/L (45-117); BILIRUBIN,TOTAL 0.6 mg/dL (0.2-1.0); CREATININE 0.52 mg/dL (0.7-1.3); TOTAL PROTEIN 7.2 g/dL (6.4-8.2)
[2018-05-17 12:21] LABS: MEAN CORPUSCULAR HEMOGLOBIN 25.2 pg (27.5-34.5); MEAN CORPUSCULAR HGB CONC 33.2 g/dL (33.2-36.2); MEAN CORPUSCULAR VOLUME 75.9 fL (81-97); MEAN PLATELET VOLUME 9.4 fL (7.4-10.4); PLATELET COUNT 309 x10^3/uL (130-400); RED BLOOD COUNT 4.26 x10^6/uL (4.38-5.82); RED CELL DISTRIBUTION WIDTH 21.9 % (9.4-14.8)
[2018-05-17 12:23] LABS: BASOPHILS # (AUTO) 0.03 x10^3/uL (0-0.1); BASOPHILS % (AUTO) 1 % (0-1); EOSINOPHILS # (AUTO) 0.08 x10^3/uL (0-0.4); EOSINOPHILS % (AUTO) 2 % (1-7); LYMPHOCYTES % (AUTO) 25 % (22-44); MD SCAN; MONOCYTES # (AUTO) 0.52 x10^3/uL (0.2-0.8); MONOCYTES % (AUTO) 9 % (2-9); NEUTROPHILS # (AUTO) 3.63 x10^3/uL (1.8-6.8); NEUTROPHILS % (AUTO) 64 % (42-75)
[2018-05-17 14:30] VITALS: BP 129/89
[2018-05-17] MEDS: ENOXAPARIN 40 MG/0.4 ML SQ SCH (20:04)
[2018-05-17 20:50] VITALS: BP 136/89
[2018-05-18] MEDS: LORazepam 2 MG/ML, 1ML IVPush PRN ×4 (00:19→12:40)
[2018-05-18 02:45] VITALS: BP 120/79
[2018-05-18 08:10] VITALS: BP 130/94
[2018-05-18] MEDS: FERROUS SULFATE 325 MG TABLET PO SCH (08:42)
[2018-05-18] MEDS: FAMOTIDINE 20 MG/2 ML IVPush SCH (08:42)
[2018-05-18] MEDS: NICOTINE 14MG/24 HR PATCH.TD24 TD SCH (08:43)
[2018-05-18] MEDS: SENNA/DOCUSATE TABLET PO SCH ×2 (08:43→08:50)
[2018-05-18] MEDS ORDERED: OXYC5TAB3 PO (10:41)
[2018-05-18] MEDS ORDERED: ONDA4TAB13 SL (10:45)
== END 2018-05-18 13:59 | disposition home or self-care (01) | DRG 438 ==
LOC: ED 22:09 → SUATTDRO 23:14 → EDIP 23:34 → 3NW 05-12 00:38
PROVIDERS: ADMIT Family Medicine; ATTEND Family Medicine
DX: K85.10 Biliary acute pancreatitis without necrosis or infection (principal); E43 Unspecified severe protein-calorie malnutrition; I81 Portal vein thrombosis; F17.200 Nicotine dependence, unspecified, uncomplicated; I10 Essential (primary) hypertension; K21.9 Gastro-esophageal reflux disease without esophagitis; Z59.0 Homelessness; Z66 Do not resuscitate; Z85.05 Personal history of malignant neoplasm of liver; Z86.010 Personal history of colon polyps; Z87.19 Personal history of other diseases of the digestive system; Z90.49 Acquired absence of other specified parts of digestive tract; Z91.19 Patient's noncompliance with other medical treatment and regimen; Z71.6 Tobacco abuse counseling; Z68.20 Body mass index [BMI] 20.0-20.9, adult
CPT/HCPCS: 36415; 99285; J3490; 71045; 80053; 81003; 83605; 83690; 83735; 84100; 85025; 85610; 85730; 87040; 87324; 93005; 96374; 96375; G0378; J1650; J2405; J2550; C9113; J2060; J2270; J7030

== ENCOUNTER 2018-05-19 20:32 | Inpatient (IN) | payer MEDICAID ==
[~2018-05-19] VITALS: Ht 182.9 cm; Wt 62.4 kg
[~2018-05-19 20:32] MED LIST changes: +ONDA4TAB13 SL; +OXYC5TAB3 PO
[2018-05-19] MEDS ORDERED: ONDANSETRON 2MG/ML, 2ML ONE (21:24)
[2018-05-19] MEDS ORDERED: MORPHINE SULFATE 4 MG/ML, 1ML ONE (21:24)
[2018-05-19] MEDS ORDERED: PROMETHAZINE 25 MG/ML, 1ML ONE (21:24)
[2018-05-19] MEDS ORDERED: PROMETHAZINE 25 MG/ML, 1ML IM ONE (21:30)
[2018-05-19] MEDS ORDERED: ONDANSETRON 2MG/ML, 2ML IVPush ONE (21:30)
[2018-05-19] MEDS ORDERED: SODIUM CHLORIDE 0.9% 1,000ML IVBOLUS ONE (21:30)
[2018-05-19] MEDS ORDERED: MORPHINE SULFATE 4 MG/ML, 1ML IVPush PRN (21:30)
[2018-05-19 21:35] LABS: BASOPHILS # (AUTO) 0.05 x10^3/uL (0-0.1); BASOPHILS % (AUTO) 0 % (0-1); EOSINOPHILS % (AUTO) 0 % (1-7); LYMPHOCYTES # (AUTO) 1.45 x10^3/uL (1-3.4); LYMPHOCYTES % (AUTO) 11 % (22-44); MD NO; MEAN CORPUSCULAR HEMOGLOBIN 25.3 pg (27.5-34.5); MEAN CORPUSCULAR HGB CONC 33.4 g/dL (33.2-36.2); MEAN CORPUSCULAR VOLUME 75.7 fL (81-97); MEAN PLATELET VOLUME 9.3 fL (7.4-10.4); MONOCYTES # (AUTO) 1.04 x10^3/uL (0.2-0.8); MONOCYTES % (AUTO) 8 % (2-9); NEUTROPHILS # (AUTO) 10.53 x10^3/uL (1.8-6.8); NEUTROPHILS % (AUTO) 81 % (42-75); PLATELET COUNT 454 x10^3/uL (130-400); RED BLOOD COUNT 4.63 x10^6/uL (4.38-5.82); RED CELL DISTRIBUTION WIDTH 21.8 % (9.4-14.8)
[2018-05-19 21:42] LABS: INTERNATIONAL NORMALIZED RATIO 1.19 (0.93-1.1); PROTHROMBIN TIME 12.3 Seconds (9.6-11.5)
[2018-05-19 21:44] LABS: ALBUMIN 2.9 g/dL (3.4-5.0); ANION GAP 12 mmol/L (5-15); CALCIUM 9.3 mg/dL (8.5-10.1); CHLORIDE 100 mmol/L (98-107)
[2018-05-19 21:48] LABS: ALANINE AMINOTRANSFERASE 99 U/L (12-78); ALKALINE PHOSPHATASE 961 U/L (45-117); BILIRUBIN,TOTAL 1.1 mg/dL (0.2-1.0); CREATININE 1.32 mg/dL (0.7-1.3); TOTAL PROTEIN 8.5 g/dL (6.4-8.2)
[2018-05-19] MEDS ORDERED: METOCLOPRAMIDE 5 MG/ML, 2ML IVPush ONE (22:00)
[2018-05-19] MEDS ORDERED: PANTOPRAZOLE 40 MG IV ONE (22:00)
[2018-05-19] MEDS ORDERED: METOCLOPRAMIDE 5 MG/ML, 2ML ONE (22:00)
[2018-05-19] MEDS ORDERED: PANTOPRAZOLE 40 MG IV IVPush ONE (22:00)
[2018-05-19] MEDS ORDERED: ACETAMINOPHEN 325 MG TABLET PO PRN (23:00)
[2018-05-19] MEDS: NICOTINE 14MG/24 HR PATCH.TD24 TD SCH (23:00)
[2018-05-19] MEDS ORDERED: BISACODYL 10 MG SUPP PR PRN (23:00)
[2018-05-19] MEDS: SODIUM CHLORIDE 0.9% 1,000 ML IV SCH (23:14)
[2018-05-19 23:16] VITALS: BP 123/74
[2018-05-20] MEDS: LORazepam 2 MG/ML, 1ML IVPush PRN ×5 (01:05→20:30)
[2018-05-20 02:59] VITALS: BP 127/94
[2018-05-20] MEDS: ONDANSETRON 2MG/ML, 2ML IVPush PRN ×3 (03:27→16:37)
[2018-05-20] MEDS: HYDROmorphone 2 MG/ML, 1ML IVPush PRN ×2 (03:27→20:29)
[2018-05-20 04:55] LABS: BASOPHILS # (AUTO) 0.03 x10^3/uL (0-0.1); BASOPHILS % (AUTO) 0 % (0-1); EOSINOPHILS % (AUTO) 0 % (1-7); LYMPHOCYTES # (AUTO) 1.14 x10^3/uL (1-3.4); LYMPHOCYTES % (AUTO) 12 % (22-44); MD NO; MEAN CORPUSCULAR HEMOGLOBIN 25.4 pg (27.5-34.5); MEAN CORPUSCULAR HGB CONC 33.2 g/dL (33.2-36.2); MEAN CORPUSCULAR VOLUME 76.4 fL (81-97); MEAN PLATELET VOLUME 9.3 fL (7.4-10.4); MONOCYTES # (AUTO) 0.79 x10^3/uL (0.2-0.8); MONOCYTES % (AUTO) 9 % (2-9); NEUTROPHILS # (AUTO) 7.26 x10^3/uL (1.8-6.8); NEUTROPHILS % (AUTO) 79 % (42-75); PLATELET COUNT 329 x10^3/uL (130-400); RED BLOOD COUNT 4.14 x10^6/uL (4.38-5.82); RED CELL DISTRIBUTION WIDTH 21.5 % (9.4-14.8)
[2018-05-20 05:01] LABS: ALANINE AMINOTRANSFERASE 89 U/L (12-78); ALBUMIN 2.7 g/dL (3.4-5.0); ANION GAP 9 mmol/L (5-15); CALCIUM 8.8 mg/dL (8.5-10.1); CHLORIDE 104 mmol/L (98-107)
[2018-05-20 05:08] LABS: ALKALINE PHOSPHATASE 797 U/L (45-117); CREATININE 0.87 mg/dL (0.7-1.3); TOTAL PROTEIN 7.5 g/dL (6.4-8.2)
[2018-05-20] MEDS: SODIUM CHLORIDE 0.9% 1,000 ML IV SCH ×2 (05:56→22:35)
[2018-05-20 07:41] VITALS: BP 136/99
[2018-05-20] MEDS: PANTOPRAZOLE 40 MG IV IVPush SCH ×2 (08:44→22:35)
[2018-05-20 12:38] VITALS: BP 149/96
[2018-05-20 19:50] VITALS: BP 135/97
[2018-05-20] MEDS: NICOTINE 14MG/24 HR PATCH.TD24 TD SCH (22:35)
[2018-05-21 01:06] VITALS: BP 143/89
[2018-05-21] MEDS: LORazepam 2 MG/ML, 1ML IVPush PRN ×4 (03:00→19:55)
[2018-05-21] MEDS: HYDROmorphone 2 MG/ML, 1ML IVPush PRN ×4 (03:00→23:25)
[2018-05-21 06:35] VITALS: BP 122/92
[2018-05-21] MEDS: SODIUM CHLORIDE 0.9% 1,000 ML IV SCH ×3 (07:27→23:14)
[2018-05-21] MEDS: PANTOPRAZOLE 40 MG IV IVPush SCH ×2 (09:30→19:55)
[2018-05-21 13:44] VITALS: BP 144/95
[2018-05-21] MEDS: ONDANSETRON 2MG/ML, 2ML IVPush PRN (17:03)
[2018-05-21 19:16] VITALS: BP 149/90
[2018-05-21] MEDS: NICOTINE 14MG/24 HR PATCH.TD24 TD SCH (23:00)
[2018-05-22] VITALS (7 sets, daily range): BP systolic 107–140; BP diastolic 75–90
[2018-05-22] MEDS: LORazepam 2 MG/ML, 1ML IVPush PRN ×2 (02:42→08:48)
[2018-05-22] MEDS: ONDANSETRON 2MG/ML, 2ML IVPush PRN (04:03)
[2018-05-22] MEDS: HYDROmorphone 2 MG/ML, 1ML IVPush PRN ×2 (04:03→20:29)
[2018-05-22] MEDS: SODIUM CHLORIDE 0.9% 1,000 ML IV SCH (08:48)
[2018-05-22] MEDS: PANTOPRAZOLE 40 MG IV IVPush SCH (08:48)
[2018-05-22] MEDS ORDERED: PANTOPROZOLE 40MG TABLET PO SCH (10:30)
[2018-05-22] MEDS: PROMETHAZINE 25MG TABLET PO PRN ×3 (11:56→20:09)
[2018-05-22] MEDS: LORazepam 1MG TABLET PO PRN (17:18)
[2018-05-22] MEDS: PANTOPROZOLE 40MG TABLET PO SCH (20:09)
[2018-05-22] MEDS: NICOTINE 14MG/24 HR PATCH.TD24 TD SCH (23:00)
[2018-05-23 03:00] VITALS: BP 124/84
[2018-05-23 07:26] VITALS: BP 122/84
[2018-05-23] MEDS: HYDROmorphone 2 MG/ML, 1ML IVPush PRN ×3 (08:23→16:19)
[2018-05-23] MEDS: PANTOPROZOLE 40MG TABLET PO SCH ×2 (08:23→19:27)
[2018-05-23] MEDS: LORazepam 1MG TABLET PO PRN ×3 (10:51→19:27)
[2018-05-23 13:04] VITALS: BP 124/81
[2018-05-23] MEDS: morphine SULFATE ORAL.CONC 20 MG/ML PO PRN ×2 (13:31→18:06)
[2018-05-23 19:06] VITALS: BP 138/92
[2018-05-23] MEDS: NICOTINE 14MG/24 HR PATCH.TD24 TD SCH (19:28)
[2018-05-24 03:00] VITALS: BP 117/81
[2018-05-24 06:58] VITALS: BP 116/81
[2018-05-24] MEDS: morphine SULFATE ORAL.CONC 20 MG/ML PO PRN ×3 (08:55→19:55)
[2018-05-24] MEDS: PANTOPROZOLE 40MG TABLET PO SCH ×2 (08:55→19:55)
[2018-05-24] MEDS: LORazepam 1MG TABLET PO PRN (12:21)
[2018-05-24 13:16] VITALS: BP 114/81
[2018-05-24 13:39] LABS: QUANTIFERON TB Ag1-NIL -0.02 (0.000-0.000)
[2018-05-24] MEDS: PROMETHAZINE 25MG TABLET PO PRN (16:16)
[2018-05-24] MEDS: HYDROmorphone 2 MG/ML, 1ML IVPush PRN (16:16)
[2018-05-24 19:22] VITALS: BP 113/76
[2018-05-24] MEDS: LORazepam 2 MG/ML, 1ML IVPush PRN (19:55)
[2018-05-24] MEDS: NICOTINE 14MG/24 HR PATCH.TD24 TD SCH (23:18)
[2018-05-25] MEDS: PANTOPROZOLE 40MG TABLET PO SCH (08:17)
[2018-05-25] MEDS: LORazepam 1MG TABLET PO PRN (08:17)
[2018-05-25] MEDS: morphine SULFATE ORAL.CONC 20 MG/ML PO PRN (10:19)
== END 2018-05-25 10:30 | disposition hospice, home (50) | DRG 871 ==
LOC: ED 22:11 → 3NW 22:45
PROVIDERS: ADMIT Hospitalist; ATTEND Hospitalist
DX: A41.9 Sepsis, unspecified organism (principal); E43 Unspecified severe protein-calorie malnutrition; I81 Portal vein thrombosis; K85.90 Acute pancreatitis without necrosis or infection, unspecified; N17.0 Acute kidney failure with tubular necrosis; C22.0 Liver cell carcinoma; D68.4 Acquired coagulation factor deficiency; K86.1 Other chronic pancreatitis; K92.0 Hematemesis; Z68.1 Body mass index [BMI] 19.9 or less, adult; C79.9 Secondary malignant neoplasm of unspecified site; Z51.5 Encounter for palliative care; Z66 Do not resuscitate; B19.20 Unspecified viral hepatitis C without hepatic coma; D50.9 Iron deficiency anemia, unspecified; E86.0 Dehydration; F17.210 Nicotine dependence, cigarettes, uncomplicated; I10 Essential (primary) hypertension; G89.29 Other chronic pain; R06.6 Hiccough; K21.9 Gastro-esophageal reflux disease without esophagitis; K80.50 Calculus of bile duct without cholangitis or cholecystitis without obstruction; Z59.0 Homelessness; Z86.010 Personal history of colon polyps; Z87.19 Personal history of other diseases of the digestive system; Z90.49 Acquired absence of other specified parts of digestive tract; Z91.19 Patient's noncompliance with other medical treatment and regimen
CPT/HCPCS: 36415; 99285; Q0169; 71045; 80053; 83690; 85025; 85610; 85730; 86480; 93005; 96372; 96374; 96375; G0378; J1170; J2405; J2550; C9113; J2060; J2765; J7030